=== PATIENT | female | born 1960 | race Two or more races ===

== ENCOUNTER 2018-05-18 12:23 | Emergency (ER) | payer OTHER ==
[2018-05-18 12:30] VITALS: BMI 27.6
[2018-05-18 16:35] LABS: BASO % 0.4 % (0-2.0); EOS % 1.3 % (0-4.5); HEMATOCRIT 38.4 % (32.4-45.2); HEMOGLOBIN 12.7 GM/dL (10.7-15.3); LYMPH % 23.2 % (8-40); MCH 28.3 pg (25.7-33.7); MCHC 32.9 g/dl (32.0-36.0); MEAN CELL VOLUME 86.1 fl (80-96); MEAN PLT VOLUME 9.6 fl (7.5-11.1); MONO % 6.4 % (3.8-10.2); NEUT % 68.7 % (42.8-82.8); PLATELET COUNT 268 K/MM3 (134-434); RBC 4.46 M/mm3 (3.60-5.2); WHITE BLOOD COUNT 6.3 K/mm3 (4.0-10.0)
--- NOTE | 2018-05-18 16:52 | PDOC ---
History of Present Illness - General Chief Complaint: Wound Stated Complaint: REVISIT, PAIN Time Seen by Provider: 05/18/18 14:58 History Source: Patient Exam Limitations: No Limitations - History of Present Illness Initial Comments: 05/18/18 16:52 58-year-old female presents to ED for worsening pain to the lateral aspect of left foot. Patient states was here a few days prior but states pain has increased and now with discoloration to the side of her foot. Patient denies history of gout, injury to the foot or poor fitting shoes. Patient is a diabetic and denies fever/chills. Patient denies sensory changes to the foot. Timing/Duration: getting worse Severity: moderate Associated Symptoms: reports: denies symptoms Past History - Past Medical History Allergies/Adverse Reactions: Allergies Allergy/AdvReac Type Severity Reaction Status Date / Time No Known Allergies Allergy Verified 05/18/18 12:30 Home Medications: Ambulatory Orders Atorvastatin Ca [Lipitor -] 10 mg PO HS 10/24/13 Enalapril Maleate 10 mg PO DAILY 06/04/14 Insulin Glulisine [Apidra Solostar] 5 unit SQ BID 06/04/14 Atorvastatin Ca [Lipitor] 40 mg PO HS 05/14/18 Insulin Glargine,Hum.rec.anlog [Basaglar Kwikpen U-100] 35 unit SQ HS 05/14/18 Liraglutide [Victoza -] 1.2 mg SQ DAILY@0700 05/14/18 Tramadol HCl 50 mg PO BID #6 tablet MDD 2 05/14/18 Amlodipine Besylate [Norvasc -] 10 mg PO DAILY 05/18/18 Clindamycin [Cleocin -] 300 mg PO TID #21 capsule 05/18/18 Gabapentin 400 mg PO DAILY 05/18/18 Glipizide [Glipizide ER] 2.5 mg PO BID 05/18/18 Metformin HCl [Glucophage] 100 mg PO BID 05/18/18 Oxybutynin Chloride [Oxybutynin Chloride ER] 10 mg PO DAILY 05/18/18 Oxycodone HCl/Acetaminophen [Percocet 5-325 mg Tablet] 1 - 2 tab PO Q6H PRN #12 tab MDD 4 05/18/18 COPD: No Diabetes: Yes HTN: Yes Hypercholesterolemia: Yes Psychiatric Problems: Yes (DEPRESSION) - Surgical History Abdominal Surgery: Yes (TUBAL LIGATION) - Immunization History Immunization Up to Date: No - Suicide/Smoking/Psychosocial Hx Smoking Status: No Smoking History: Never smoked Have you smoked in the past 12 months: No Number of Cigarettes Smoked Daily: 0 Information on smoking cessation initiated: No Hx Alcohol Use: No Drug/Substance Use Hx: No Substance Use Type: None Patient Lives Alone: No Lives with/in: spouse/SO Review of Systems - Review of Systems Able to Perform ROS?: No Constitutional: No: Symptoms Reported HEENTM: No: Symptoms Reported Respiratory: No: Symptoms reported Cardiac (ROS): No: Symptoms Reported ABD/GI: No: Symptoms Reported : No: Symptoms Reported Musculoskeletal: Yes: Joint Pain (left foot), Joint Swelling Integumentary: Yes: Bruising Neurological: No: Symptoms reported Endocrine: No: Symptoms Reported *Physical Exam - Vital Signs Last Vital Signs Temp Pulse Resp BP Pulse Ox 98.8 F 82 17 139/53 100 05/18/18 12:28 05/18/18 12:28 05/18/18 12:28 05/18/18 12:28 05/18/18 12:28 - Physical Exam General Appearance: Yes: Nourished, Appropriately Dressed. No: Apparent Distress Vascular Pulses: Doralis-Pedis (L): 2+ Extremity: positive: Pedal Edema (2+ pitting over lateral aspect of left malleolus extending to the lateral aspect of calcaneus. Patient also noted with purpleish discoloration to the distal aspect of left malleolus on the lateral side near the sole. No increased warmth or open lesions noted ) Integumentary: positive: Diaphoresis, Swelling Neurologic: positive: Motor Strength 5/5 ED Treatment Course - LABORATORY CBC & Chemistry Diagram: 05/18/18 16:30 05/18/18 16:30 - ADDITIONAL ORDERS Additional order review: 05/18/18 16:30 RBC 4.46 MCV 86.1 MCHC 32.9 RDW 14.0 MPV 9.6 Neutrophils % 68.7 Lymphocytes % 23.2 Monocytes % 6.4 Eosinophils % 1.3 Basophils % 0.4 - RADIOLOGY Radiology Studies Ordered: Category Date Time Status LOWER EXTREMITY CT W/O CONTR [CT] Stat CT Scan 05/18/18 15:36 Ordered DUPLEX VASCUL US-1 LEG [US] Stat Ultrasound 05/18/18 16:38 Ordered - Medications Given in the ED: ED Medications Discontinued Medications Generic Name Dose Route Start Last Admin Trade Name Vinay PRN Reason Stop Dose Admin Oxycodone/Acetaminophen 1 combo 05/18/18 15:35 05/18/18 16:31 Percocet 5/325 - PO 05/18/18 15:36 1 combo ONCE ONE Administration Medical Decision Making - Medical Decision Making 05/18/18 16:05 Patient with worsening pain to the left foot continual swelling and now with ecchymosis. Patient concerning for early diabetic foot ulcer/gout/soft tissue injury. Patient ordered for labs, uric acid, Percocet and CT of the lower extremity along with ultrasound of the lower stomach to rule out phlebitis and DVT. 05/18/18 16:57 Laboratory Tests 05/18/18 16:30 WBC 6.3 Hgb 12.7 Hct 38.4 Neutrophils % 68.7 05/18/18 18:00 Laboratory Tests 05/18/18 16:30 Sodium 137 Potassium 4.3 Chloride 99 Carbon Dioxide 32 BUN 11 Creatinine 0.7 Creat Clearance w eGFR > 60 Random Glucose 271 H Uric Acid 2.8 Calcium 9.2 Total Bilirubin 0.3 AST 9 L ALT 20 Alkaline Phosphatase 112 Total Protein 7.[address] - no abscess, osteomyelitis or fracture. Duplex study - for dvt Th ept states is feeling much better. Will discharge home with antibiotic for early/possible diabetic foot ulcer. Percocet for pain. 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 *DC/Admit/Observation/Transfer Diagnosis at time of Disposition: Diabetes, Osteophyte - Discharge Dispostion Disposition: HOME Condition at time of disposition: Good - Referrals Referrals: Bernard Dias [Primary Care Provider] - - Patient Instructions Printed Discharge Instructions: How to Take Care of Your Feet If You Have Diabetes Additional Instructions: Please take antibiotics tonight. Take Percocet as needed for PAIN. Follow up with stem processing machine operator next week. Return to ED if redness, swelling or fever occurs - Post Discharge Activity
--- NOTE | 2018-05-18 16:53 | PDOC ---
*Physical Exam - Vital Signs Last Vital Signs Temp Pulse Resp BP Pulse Ox 98.8 F 82 17 139/53 100 05/18/18 12:28 05/18/18 12:28 05/18/18 12:28 05/18/18 12:28 05/18/18 12:28 - Physical Exam General Appearance: Yes: Nourished HEENT: positive: JHONATHAN Neck: positive: Trachea midline Respiratory/Chest: positive: Lungs Clear, Normal Breath Sounds Cardiovascular: positive: Regular Rhythm, Regular Rate, S1, S2 Gastrointestinal/Abdominal: positive: Normal Bowel Sounds, Flat, Soft. negative : Tender Extremity: positive: Normal Capillary Refill, Normal Range of Motion, Tender, Pedal Edema, Swelling (left lateral foot with posterior heel, lateralheel ttp, erythema and swelling. ) Integumentary: positive: Swelling (foot swellikng erythema) Neurologic: positive: Fully Oriented, Alert, Normal Mood/Affect ED Treatment Course - LABORATORY CBC & Chemistry Diagram: 05/18/18 16:30 05/18/18 16:30 - ADDITIONAL ORDERS Additional order review: 05/18/18 16:30 RBC 4.46 MCV 86.1 MCHC 32.9 RDW 14.0 MPV 9.6 Neutrophils % 68.7 Lymphocytes % 23.2 Monocytes % 6.4 Eosinophils % 1.3 Basophils % 0.4 - Medications Given in the ED: ED Medications Discontinued Medications Generic Name Dose Route Start Last Admin Trade Name Freq PRN Reason Stop Dose Admin Oxycodone/Acetaminophen 1 combo 05/18/18 15:35 05/18/18 16:31 Percocet 5/325 - PO 05/18/18 15:36 1 combo ONCE ONE Administration Medical Decision Making - Medical Decision Making 05/18/18 16:50 58 yo F h/o DM here with c/o left lateral foot swelling and pain. no h/o trauma. was seen for same day ago. had xray foot negative. no h/o pe or dvt. no f/c pain moderate. mild swelling and redness. lateral focal ttp and redness latera heel and foot. differential cellutlisi, dvt and or phlebitis. plan us ext labs likely tx with abx. if negative consider dc home with abx and podiatry followup. pt seen and examined, in conjunction with garrick Vega. agree with plan and assessment. *DC/Admit/Observation/Transfer Diagnosis at time of Disposition: Diabetes, Osteophyte, Cellulitis - Discharge Dispostion Disposition: HOME Condition at time of disposition: Good - Prescriptions Prescriptions: Clindamycin [Cleocin -] 300 mg PO Q6HPO #28 capsule Oxycodone HCl/Acetaminophen [Percocet 5-325 mg Tablet] 1 - 2 tab PO Q6H PRN #12 tab MDD 4 tabs PRN Reason: Severe Pain - Referrals Referrals: Bernard Dias [Primary Care Provider] - - Patient Instructions Printed Discharge Instructions: How to Take Care of Your Feet If You Have Diabetes Additional Instructions: Please take antibiotics tonight. Take Percocet as needed for PAIN. Follow up with trainman next week. Return to ED if redness, swelling or fever occurs Print Language: NIUEAN - Post Discharge Activity
[2018-05-18 17:08] LABS: ALBUMIN 3.8 g/dl (3.4-5.0); ALK PHOS 112 U/L (45-117); ANION GAP 6 (8-16); BILIRUBIN,TOTAL 0.3 mg/dL (0.2-1.0); BLOOD UREA NITROGEN 11 mg/dL (7-18); CALCIUM 9.2 mg/dL (8.5-10.1); CHLORIDE 99 mmol/L (98-107); CO2 32 mmol/L (21-32); CREATININE 0.7 mg/dL (0.55-1.02); GLUCOSE,RANDOM 271 mg/dL (74-106); POTASSIUM 4.3 mmol/L (3.5-5.1); SGOT/AST 9 U/L (15-37); SGPT/ALT 20 U/L (12-78); SODIUM 137 mmol/L (136-145); TOT PROT 7.4 g/dl (6.4-8.2); URIC ACID 2.8 mg/dL (2.6-7.2)
[2018-05-18 18:31] VITALS: BP 119/61; PULSE 63; TEMP 97.8
== END 2018-05-18 18:44 | disposition home or self-care (01) ==
LOC: JER 12:23
DX: L03.116 Cellulitis of left lower limb (principal); M25.775 Osteophyte, left foot; E11.9 Type 2 diabetes mellitus without complications; Z79.4 Long term (current) use of insulin; Z79.84 Long term (current) use of oral hypoglycemic drugs; F32.9 Major depressive disorder, single episode, unspecified
CPT/HCPCS: 36415; 73700-TC-RT; 80053; 84550; 85025; 93971-TC; 99282-25

== ENCOUNTER 2018-10-01 08:55 | Emergency (ER) | payer OTHER ==
[2018-10-01 09:01] VITALS: BP 139/65; PULSE 77; TEMP 98.1; BMI 28.3
--- NOTE | 2018-10-01 10:05 | PDOC ---
History of Present Illness - General Chief Complaint: Abscess Boil Stated Complaint: ABSCESS ON LEG Time Seen by Provider: 10/01/18 09:12 History Source: Patient Exam Limitations: No Limitations - History of Present Illness Initial Comments: 10/01/18 19:48 Patient is a 58-year-old female who insulin-dependent diabetes who presents to the emergency department with an abscess to her right lower leg as well as a pimple to her right axilla. Patient states that these started approximately 4 days ago. She tried see her primary care doctor however she was not able to get antibiotics. She states that she gets abscesses often because of her diabetes. Patient states that her sugars have been elevated despite using her insulin as directed because of the infection. Denies fevers, chills, nausea, vomiting, lightheadedness and dizziness. Past History - Travel Traveled outside of the country in the last 30 days: No Close contact w/someone who was outside of country & ill: No - Past Medical History Allergies/Adverse Reactions: Allergies Allergy/AdvReac Type Severity Reaction Status Date / Time No Known Allergies Allergy Verified 10/01/18 08:56 Home Medications: Ambulatory Orders Insulin Glulisine [Apidra Solostar] 5 unit SQ BID 06/04/14 Atorvastatin Ca [Lipitor] 40 mg PO HS 05/14/18 Insulin Glargine,Hum.rec.anlog [Basaglar Kwikpen U-100] 35 unit SQ HS 05/14/18 Liraglutide [Victoza -] 1.2 mg SQ DAILY@0700 05/14/18 Amlodipine Besylate [Norvasc -] 10 mg PO DAILY 05/18/18 Gabapentin 400 mg PO DAILY 05/18/18 Glipizide [Glipizide ER] 2.5 mg PO BID 05/18/18 Metformin HCl [Glucophage] 100 mg PO BID 05/18/18 Oxybutynin Chloride [Oxybutynin Chloride ER] 10 mg PO DAILY 05/18/18 Aspirin [ASA -] 1 tab PO DAILY 07/19/18 Cephalexin Monohydrate [Keflex -] 500 mg PO BID #14 capsule 10/01/18 Sulfamethoxazole/Trimethoprim [Bactrim Ds -] 1 tab PO BID #14 tablet 10/01/18 COPD: No Diabetes: Yes HTN: Yes Hypercholesterolemia: Yes Psychiatric Problems: Yes (DEPRESSION) - Surgical History Abdominal Surgery: Yes (TUBAL LIGATION) - Immunization History Immunization Up to Date: No - Suicide/Smoking/Psychosocial Hx Smoking Status: No Smoking History: Never smoked Have you smoked in the past 12 months: No Number of Cigarettes Smoked Daily: 0 Hx Alcohol Use: No Drug/Substance Use Hx: No Substance Use Type: None Review of Systems - Review of Systems Able to Perform ROS?: Yes Comments:: 10/01/18 12:34 CONSTITUTIONAL: Absent: fever, chills, diaphoresis, generalized weakness, malaise, loss of appetite HEENT: Absent: rhinorrhea, nasal congestion, throat pain, throat swelling, difficulty swallowing, mouth swelling, ear pain, eye pain, visual Changes CARDIOVASCULAR: Absent: chest pain, loss of consciousness, palpitations, irregular heart rate, peripheral edema RESPIRATORY: Absent: cough, shortness of breath, dyspnea with exertion, orthopnea, wheezing, stridor, hemoptysis GASTROINTESTINAL: Absent: abdominal pain, abdominal distension, nausea, vomiting, diarrhea, constipation, melena, hematochezia GENITOURINARY: Absent: dysuria, frequency, urgency, hesitancy, hematuria, flank pain, genital pain MUSCULOSKELETAL: Absent: myalgia, arthralgia, joint swelling SKIN: Present: abcess to R lower leg, pimple to r axilla. Absent: rash, itching, pallor HEMATOLOGIC/IMMUNOLOGIC: Absent: easy bleeding, easy bruising, lymphadenopathy, frequent infections ENDOCRINE: Absent: unexplained weight gain, unexplained weight loss, heat intolerance, cold intolerance NEUROLOGIC: Absent: headache, focal weakness or paresthesias, dizziness, unsteady gait, seizure, mental status changes, bladder or bowel incontinence PSYCHIATRIC: Absent: anxiety, depression, suicidal or homicidal ideation, hallucinations. *Physical Exam - Vital Signs Last Vital Signs Temp Pulse Resp BP Pulse Ox 98.1 F 77 18 139/65 100 10/01/18 08:56 10/01/18 08:56 10/01/18 08:56 10/01/18 08:56 10/01/18 08:56 - Physical Exam Comments: 10/01/18 19:44 GENERAL: Well developed, well nourished. Awake and alert. No acute distress. HEENT: Normocephalic, atraumatic. PERRLA, EOMI. No conjunctival pallor. Sclera are non- icteric. Moist mucous membranes. Oropharynx is clear. NECK: Supple. Full ROM. No JVD. Carotid pulses 2+ and symmetric, without bruits. No thyromegaly. No lymphadenopathy. CARDIOVASCULAR: Regular rate and rhythm. No murmurs, rubs, or gallops. Distal pulses are 2+ and symmetric. PULMONARY: No evidence of respiratory distress. Lungs clear to auscultation bilaterally. No wheezing, rales or rhonchi. ABDOMINAL: Soft. Non-tender. Non-distended. No rebound or guarding. No organomegaly. Normoactive bowel sounds. MUSCULOSKELETAL Normal range of motion at all joints. No bony deformities or tenderness. No CVA tenderness. EXTREMITIES: No cyanosis. No clubbing. No edema. No calf tenderness. SKIN: Warm and dry. Normal capillary refill. No rashes. No jaundice. NEUROLOGICAL: Alert, awake, appropriate. Cranial nerves 2-12 intact. No deficits to light touch and temperature in face, upper extremities and lower extremities. No motor deficits in the in face, upper extremities and lower extremities. Normoreflexic in the upper and lower extremities. Normal speech. Toes are down- going bilaterally. Gait is normal without ataxia. PSYCHIATRIC: Cooperative. Good eye contact. Appropriate mood and affect. Moderate Sedation - Procedure Monitoring Vital Signs: Procedure Monitoring Vital Signs Temperature 98.1 F 10/01/18 08:56 Pulse Rate 77 10/01/18 08:56 Respiratory Rate 18 10/01/18 08:56 Blood Pressure 139/65 10/01/18 08:56 O2 Sat by Pulse Oximetry (%) 100 10/01/18 08:56 Procedures - Incision and Drainage I&D Site: Right: Leg (lower) Betadine cleansed: Yes Anesthesia: 1% Lidocaine Volume(ml): 6 Blade Size: 11 Attempts: 1 (minimal purlent drainage after exploration of the abscess) Iodinated Packin/ in Plain Packing: No Complications: none Dressing: Yes ED Treatment Course - ADDITIONAL ORDERS Additional order review: Laboratory Results 10/01/18 09:43 POC Glucometer [id number] 10/01/18 09:43 POC Glucometer [id number] Medical Decision Making - Medical Decision Making 10/01/18 12:45 Patient is a 58-year-old insulin-dependent diabetic who presents emergency department for an abscess to her lower leg. -On exam patient with head to the abscess. Abscess is located on the proximal right lateral lower extremity, just below the kneecap. Patient able to fully flex and extend right knee. No warmth or swelling over the joint. -Area of fluctuance is about 3 cm round. -Abscess was I&D in the emergency department. Minimal purulent drainage after exploration of the abscess. Wound culture collected. -Patient started on Bactrim and Keflex. -Patient with a pimple in her right armpit. There is no fluctuance to drain at this time. Patient advised warm water soaks. -Sugar was 347. Patient given 6 units of NovoLog in the ER. -Patient given strict instructions to return to the ER in 2 days for further evaluation. -Strict return precautions given. -I discussed the physical exam findings, ancillary test results and final diagnoses with the patient. I answered all of the patient's questions. The patient was satisfied with the care received and felt comfortable with the discharge plan and treatment plan. The Patient agrees to follow up with the primary care physician/specialist within 24-72 hours. Return precautions were given. *DC/Admit/Observation/Transfer Diagnosis at time of Disposition: Abscess Cellulitis Qualifiers: Site of cellulitis: extremity Site of cellulitis of extremity: lower extremity Laterality: right Qualified Code(s): L03.115 - Cellulitis of right lower limb - Discharge Dispostion Disposition: HOME Condition at time of disposition: Stable Decision to Admit order: No - Prescriptions Prescriptions: Cephalexin Monohydrate [Keflex -] 500 mg PO BID #14 capsule Sulfamethoxazole/Trimethoprim [Bactrim Ds -] 1 tab PO BID #14 tablet - Referrals - Patient Instructions Printed Discharge Instructions: DI for Cellulitis -- Adult, DI for Incision and Drainage of a Skin Abscess Additional Instructions: You have cellulitis. This is a skin infection. You had the abscess drained on your leg today Please take the Bactrim and Keflex twice a day for one week. Please take all the antibiotics even if you feel better. You may use warm water soaks to the armpit. Please do this approximately 4-5 times a day. Do NOT soak the leg. Please avoid shaving the skin around the area of redness. You may take Tylenol as needed for pain. 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 Tienes celulitis Esta es lynda infeccin de la piel. Usted tuvo el absceso drenado en willis pierna hoy Por favor, tome Bactrim y Keflex dos veces al da ellen lynda semana. Por favor , tome todos los antibiticos aunque se sienta mejor. Usted puede usar agua tibia empapa a la axila. Por favor david esto aproximadamente 4-5 veces al da. NO remoje la pierna. Evite rasurar la piel alrededor del tash de enrojecimiento. Puede kwaku Tylenol segn sea necesario para el dolor. Siga las instrucciones del fabricante. Debe regresar al servicio de urgencias en dos santizo para lynda revisin y reevaluacin Regrese a la olga de emergencias si tiene empeoramiento de enrojecimiento, fiebre, vmitos, si el sitio crece, aumenta el dolor o tiene algn cambio en gema sntomas. - Post Discharge Activity
[2018-10-01] MEDS ORDERED: INSULIN REGULAR HUMAN 100 UNITS/ML *VIAL SQ ONE (10:37)
[2018-10-01] MEDS ORDERED: INSULIN REGULAR HUMAN 100 UNITS/ML *VIAL ONE (10:45)
[2018-10-01] MEDS ORDERED: Insulin (LOG) Aspart 100 UNITS/ML VIAL SQ ONE (10:52)
[2018-10-01] MEDS ORDERED: INSULIN (NOVOLOG) ASPART 100 UNITS/ML 10ML VIAL ONE (10:57)
== END 2018-10-01 11:15 | disposition home or self-care (01) ==
LOC: JERFT 08:55
PROC: 0J9P0ZZ Drainage of Left Lower Leg Subcutaneous Tissue and Fascia, Open Approach (ICD-10-PCS; principal; 2018-10-01)
PROC: 3E013VG Introduction of Insulin into Subcutaneous Tissue, Percutaneous Approach (ICD-10-PCS; 2018-10-01)
DX: L03.115 Cellulitis of right lower limb (principal); R23.8 Other skin changes; E11.65 Type 2 diabetes mellitus with hyperglycemia; Z79.4 Long term (current) use of insulin; Z79.84 Long term (current) use of oral hypoglycemic drugs; E78.00 Pure hypercholesterolemia, unspecified; I10 Essential (primary) hypertension; F32.9 Major depressive disorder, single episode, unspecified
CPT/HCPCS: 10060; 82962; 87070; 87186; 87205; 96372; 99281-25

== ENCOUNTER 2018-10-03 10:56 | Inpatient (IN) | payer OTHER ==
--- NOTE | 2018-10-03 12:01 | PDOC ---
History of Present Illness - General Chief Complaint: Revisit,Wound Recheck Stated Complaint: REVISIT, ABSCESS BOIL Time Seen by Provider: 10/03/18 11:13 History Source: Patient Exam Limitations: No Limitations - History of Present Illness Initial Comments: 10/03/18 15:47 Patient is a 58-year-old female with past medical history of insulin-dependent diabetes, who presents to the emergency department today with worsening cellulitis to her right lower leg. Patient was seen 2 days ago by myself in the emergency department and had an I&D to an abscess of her right lower leg. She is placed on Bactrim and Keflex. Patient states she's been taking the medication however she still has swelling and erythema to the site. She states that her sugars have still been high in the high 200s, low 300s. Denies fevers, chills, nausea, vomiting, difficulty walking, and tingling HLD, weakness to the extremity. Past History - Travel Traveled outside of the country in the last 30 days: No Close contact w/someone who was outside of country & ill: No - Past Medical History Allergies/Adverse Reactions: Allergies Allergy/AdvReac Type Severity Reaction Status Date / Time No Known Allergies Allergy Verified 10/03/18 11:02 Home Medications: Ambulatory Orders Insulin Glulisine [Apidra Solostar] 5 unit SQ BID 06/04/14 Atorvastatin Ca [Lipitor] 40 mg PO HS 05/14/18 Insulin Glargine,Hum.rec.anlog [Basaglar Kwikpen U-100] 35 unit SQ HS 05/14/18 Liraglutide [Victoza -] 1.2 mg SQ DAILY@0700 05/14/18 Amlodipine Besylate [Norvasc -] 10 mg PO DAILY 05/18/18 Gabapentin 400 mg PO DAILY 05/18/18 Glipizide [Glipizide ER] 2.5 mg PO BID 05/18/18 Metformin HCl [Glucophage] 100 mg PO BID 05/18/18 Oxybutynin Chloride [Oxybutynin Chloride ER] 10 mg PO DAILY 05/18/18 Aspirin [ASA -] 1 tab PO DAILY 07/19/18 Cephalexin Monohydrate [Keflex -] 500 mg PO BID #14 capsule 10/01/18 Sulfamethoxazole/Trimethoprim [Bactrim Ds -] 1 tab PO BID #14 tablet 10/01/18 COPD: No Diabetes: Yes HTN: Yes Hypercholesterolemia: Yes Psychiatric Problems: Yes (DEPRESSION) - Surgical History Abdominal Surgery: Yes (TUBAL LIGATION) - Immunization History Immunization Up to Date: No - Suicide/Smoking/Psychosocial Hx Smoking Status: No Smoking History: Never smoked Have you smoked in the past 12 months: No Number of Cigarettes Smoked Daily: 0 Hx Alcohol Use: No Drug/Substance Use Hx: No Substance Use Type: None Review of Systems - Review of Systems Able to Perform ROS?: Yes Comments:: 10/03/18 15:28 CONSTITUTIONAL: Absent: fever, chills, diaphoresis, generalized weakness, malaise, loss of appetite HEENT: Absent: rhinorrhea, nasal congestion, throat pain, throat swelling, difficulty swallowing, mouth swelling, ear pain, eye pain, visual Changes CARDIOVASCULAR: Absent: chest pain, loss of consciousness, palpitations, irregular heart rate, peripheral edema RESPIRATORY: Absent: cough, shortness of breath, dyspnea with exertion, orthopnea, wheezing, stridor, hemoptysis GASTROINTESTINAL: Absent: abdominal pain, abdominal distension, nausea, vomiting, diarrhea, constipation, melena, hematochezia GENITOURINARY: Absent: dysuria, frequency, urgency, hesitancy, hematuria, flank pain, genital pain MUSCULOSKELETAL: Absent: myalgia, arthralgia, joint swelling SKIN: Absent: rash, itching, pallor HEMATOLOGIC/IMMUNOLOGIC: Absent: easy bleeding, easy bruising, lymphadenopathy, frequent infections ENDOCRINE: Absent: unexplained weight gain, unexplained weight loss, heat intolerance, cold intolerance NEUROLOGIC: Absent: headache, focal weakness or paresthesias, dizziness, unsteady gait, seizure, mental status changes, bladder or bowel incontinence PSYCHIATRIC: Absent: anxiety, depression, suicidal or homicidal ideation, hallucinations. Is the patient limited Malian proficient: No *Physical Exam - Vital Signs Last Vital Signs Temp Pulse Resp BP Pulse Ox 97.8 F 76 18 150/75 10/03/18 11:03 10/03/18 11:03 10/03/18 11:03 10/03/18 11:03 - Physical Exam Comments: 10/03/18 15:28 GENERAL: Well developed, well nourished. Awake and alert. No acute distress. HEENT: Normocephalic, atraumatic. PERRLA, EOMI. No conjunctival pallor. Sclera are non- icteric. Moist mucous membranes. Oropharynx is clear. NECK: Supple. Full ROM. No JVD. Carotid pulses 2+ and symmetric, without bruits. No thyromegaly. No lymphadenopathy. CARDIOVASCULAR: Regular rate and rhythm. No murmurs, rubs, or gallops. Distal pulses are 2+ and symmetric. PULMONARY: No evidence of respiratory distress. Lungs clear to auscultation bilaterally. No wheezing, rales or rhonchi. ABDOMINAL: Soft. Non-tender. Non-distended. No rebound or guarding. No organomegaly. Normoactive bowel sounds. MUSCULOSKELETAL Normal range of motion at all joints. No bony deformities or tenderness. No CVA tenderness. EXTREMITIES: No cyanosis. No clubbing. No edema. No calf tenderness. SKIN: Warm and dry. Normal capillary refill. No rashes. No jaundice. NEUROLOGICAL: Alert, awake, appropriate. Cranial nerves 2-12 intact. No deficits to light touch and temperature in face, upper extremities and lower extremities. No motor deficits in the in face, upper extremities and lower extremities. Normoreflexic in the upper and lower extremities. Normal speech. Toes are down- going bilaterally. Gait is normal without ataxia. PSYCHIATRIC: Cooperative. Good eye contact. Appropriate mood and affect. Moderate Sedation - Procedure Monitoring Vital Signs: Procedure Monitoring Vital Signs Temperature 97.8 F 10/03/18 11:03 Pulse Rate 76 10/03/18 11:03 Respiratory Rate 18 10/03/18 11:03 Blood Pressure 150/75 10/03/18 11:03 O2 Sat by Pulse Oximetry (%) ED Treatment Course - LABORATORY CBC & Chemistry Diagram: 10/03/18 12:06 10/03/18 12:06 *DC/Admit/Observation/Transfer Diagnosis at time of Disposition: Cellulitis Qualifiers: Site of cellulitis: extremity Site of cellulitis of extremity: lower extremity Laterality: right Qualified Code(s): L03.115 - Cellulitis of right lower limb - Discharge Dispostion Condition at time of disposition: Stable Decision to Admit order: Yes - Referrals - Patient Instructions - Post Discharge Activity
[2018-10-03] MEDS ORDERED: VANCOMYCIN 1,000 MG in DEXTROSE 5%-WATER - 250 ML IVPB ONE (12:05)
[2018-10-03] MEDS ORDERED: PIPERACILLIN/TAZOB 3.375 GM 3.375 GM in DEXTROSE 5%-WATER - 50 ML IVPB ONE (12:07)
[2018-10-03] MEDS ORDERED: VANCOMYCIN 1 GRAM (PRE-DOCKED) 1,000 MG/250 ML BAG IVPB ONE (12:24)
[2018-10-03] MEDS ORDERED: PIPERACILLIN/TAZOB 3.375 GM 3.375 GM/50 ML BAG IVPB ONE (12:25)
[2018-10-03 12:43] LABS: BASO % 0.6 % (0-2.0); EOS % 1.5 % (0-4.5); HEMATOCRIT 40.6 % (32.4-45.2); HEMOGLOBIN 12.9 GM/dL (10.7-15.3); MCH 27.6 pg (25.7-33.7); MCHC 31.8 g/dl (32.0-36.0); MEAN CELL VOLUME 86.6 fl (80-96); MEAN PLT VOLUME 10.7 fl (7.5-11.1); MONO % 5.8 % (3.8-10.2); NEUT % 66.1 % (42.8-82.8); PLATELET COUNT 231 K/MM3 (134-434); RBC 4.69 M/mm3 (3.60-5.2); RDW 13.6 % (11.6-15.6); WHITE BLOOD COUNT 5.7 K/mm3 (4.0-10.0)
[2018-10-03 12:58] LABS: URINE APPEARANCE CLEAR; URINE BILIRUBIN NEGATIVE (<2.0 mg/dL); URINE COLOR STRAW; URINE GLUCOSE (UA) 3+ (NEGATIVE); URINE KETONE NEGATIVE (NEGATIVE); URINE LEUK ESTERASE NEGATIVE (NEGATIVE); URINE NITRITE NEGATIVE (NEGATIVE); URINE PROTEIN NEGATIVE (NEGATIVE); URINE UROBILINOGEN NEGATIVE mg/dL (0.2-1.0)
[2018-10-03 13:06] LABS: ALBUMIN 3.8 g/dl (3.4-5.0); ALK PHOS 112 U/L (45-117); ANION GAP 7 MMOL/L (8-16); BILIRUBIN,TOTAL 0.3 mg/dL (0.2-1); BLOOD UREA NITROGEN 17 mg/dL (7-18); CALCIUM 9.4 mg/dL (8.5-10.1); CHLORIDE 98 mmol/L (98-107); CO2 29 mmol/L (21-32); CREATININE 0.8 mg/dL (0.55-1.3); GLUCOSE,RANDOM 282 mg/dL (74-106); POTASSIUM 4.8 mmol/L (3.5-5.1); SGOT/AST 12 U/L (15-37); SGPT/ALT 21 U/L (13-61); SODIUM 134 mmol/L (136-145); TOT PROT 7.6 g/dl (6.4-8.2)
--- NOTE | 2018-10-03 15:52 | EKG ---
Test Reason : Blood Pressure : / mmHG Vent. Rate : 064 BPM Atrial Rate : 064 BPM P-R Int : 114 ms QRS Dur : 088 ms QT Int : 414 ms P-R-T Axes : 051 013 013 degrees QTc Int : 427 ms POOR DATA QUALITY, INTERPRETATION MAY BE ADVERSELY AFFECTED NORMAL SINUS RHYTHM NORMAL ECG WHEN COMPARED WITH ECG OF 24-OCT-2013 11:21, T WAVE AMPLITUDE HAS DECREASED IN ANTERIOR LEADS Confirmed by WINDY RENO, MARGARET ([id number]) on 10/03/2018 3:52:01 PM Referred By: Confirmed By:MARGARET TEMPLE MD
--- NOTE | 2018-10-03 16:49 | PN ---
Teaching Attending Note Name of Resident: Kole Ramos ATTENDING PHYSICIAN STATEMENT I saw and evaluated the patient. I reviewed the resident's note and discussed the case with the resident. I agree with the resident's findings and plan as documented. SUBJECTIVE: Rt knee pain and fever OBJECTIVE: Middle aged woman comfortable Vital Signs Period Temp Pulse Resp BP Sys/Kirk Pulse Ox Last 24 Hr 97.8 F-98.7 F 70-76 18-18 145-150/74-75 98 HEENT: Mm moist, no anemia, PERRLA EOMI NECK: No JVD No Bruit CHEST: CTA B/L CVS; S1S2 R ABD: No distention , non tender Bs + EXT: Rt knee Lateral aspect small pustule s/p I and D 2 days ago surrounding indurated area no Joint swelling or effusion BARREL BRANDER: AOX3 non focal LABS: CBC, BMP 10/03/18 12:06 10/03/18 12:06 Pus Culture; 10/01 MRSA: sensitive to Clinda, Vanco, Bactrim, Lenzolid ASSESSMENT AND PLAN:58 years on history of uncontrolled T2DM, HTN present with worsening Rt LE abscess with cellulitis , patient failed PO Bactrin, Pus culture grew MRSA; Impression; Purulent Cellulitis with abscess formation failed PO abx ; IV Vancomycin, wound care hot fomentation, consider surgery/wound care if no improvement, pain control, contact isolation. Uncontrolled T2DM: Hold Po meds , Diabetic Diet, Levimir 35 units bed time and Humalog 10 units pre meal TID and correction dose insulin. Rest cont current management. DVt Prophylaxis.
--- NOTE | 2018-10-03 17:04 | HP ---
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 She was in ED 2 days ago for the same complaint. The wound was drained at that time and the patient was sent home on bactrim and keflex with strict return precautions. However, she returned today stating the wound was still painful, red, and was draining. Denies fever, chills, n/v/d. No other complaints. ER course was notable for: (1) la archer (2) (3) Recent Travel: denies PAST MEDICAL HISTORY: as above PAST SURGICAL HISTORY: Social History: Smoking: denies Alcohol: denies Drugs: denies Family History: denies Allergies No Known Allergies Allergy (Verified 10/03/18 11:02) HOME MEDICATIONS: Home Medications Medication Instructions Recorded Insulin Glulisine [Apidra Solostar] 5 unit SQ BID 06/04/14 Atorvastatin Ca [Lipitor] 40 mg PO HS 05/14/18 Insulin Glargine,Hum.rec.anlog 35 unit SQ HS 05/14/18 [Basaglar Kwikpen U-100] Liraglutide [Victoza -] 1.2 mg SQ DAILY@0700 05/14/18 Amlodipine Besylate [Norvasc -] 10 mg PO DAILY 05/18/18 Gabapentin 400 mg PO DAILY 05/18/18 Glipizide [Glipizide ER] 2.5 mg PO BID 05/18/18 Metformin HCl [Glucophage] 100 mg PO BID 05/18/18 Oxybutynin Chloride [Oxybutynin 10 mg PO DAILY 05/18/18 Chloride ER] Aspirin [ASA -] 1 tab PO DAILY 07/19/18 Cephalexin Monohydrate [Keflex -] 500 mg PO BID #14 capsule 10/01/18 Sulfamethoxazole/Trimethoprim 1 tab PO BID #14 tablet 10/01/18 [Bactrim Ds -] REVIEW OF SYSTEMS CONSTITUTIONAL: Absent: fever, chills, diaphoresis, generalized weakness, malaise, loss of appetite, weight change HEENT: Absent: rhinorrhea, nasal congestion, throat pain, throat swelling, difficulty swallowing, mouth swelling, ear pain, eye pain, visual changes CARDIOVASCULAR: Absent: chest pain, syncope, palpitations, irregular heart rate, lightheadedness , peripheral edema RESPIRATORY: Absent: cough, shortness of breath, dyspnea with exertion, orthopnea, wheezing, stridor, hemoptysis GASTROINTESTINAL: Absent: abdominal pain, abdominal distension, nausea, vomiting, diarrhea, constipation, melena, hematochezia GENITOURINARY: Absent: dysuria, frequency, urgency, hesitancy, hematuria, flank pain, genital pain MUSCULOSKELETAL: Absent: myalgia, arthralgia, joint swelling, back pain, neck pain SKIN: lesion on RLE Absent: rash, itching, pallor HEMATOLOGIC/IMMUNOLOGIC: Absent: easy bleeding, easy bruising, lymphadenopathy, frequent infections ENDOCRINE: Absent: unexplained weight gain, unexplained weight loss, heat intolerance, cold intolerance NEUROLOGIC: Absent: headache, focal weakness or paresthesias, dizziness, unsteady gait, seizure, mental status changes, bladder or bowel incontinence PSYCHIATRIC: Absent: anxiety, depression, suicidal or homicidal ideation, hallucinations. PHYSICAL EXAMINATION Vital Signs - 24 hr 10/03/18 11:03 Temperature 97.8 F Pulse Rate 76 Respiratory 18 Rate Blood Pressure 150/75 Gen: comfortable appearing HEENT: EOMI, NCAT Neck: supple, no jvd Cardio: rrr, normal s1s2, no mrg Pulm: cta b/l Abd: nondistended, soft, nontender Ext: RLE with draining 1-2cm abscess and 6cm surrounding erythema Laboratory Results - last 24 hr 10/03/18 10/03/18 10/03/18 12:06 12:06 12:35 WBC 5.7 RBC 4.69 Hgb 12.9 Hct 40.6 MCV 86.6 MCH 27.6 MCHC 31.8 L RDW 13.6 Plt Count 231 MPV 10.7 D Absolute Neuts (auto) 3.8 Neutrophils % 66.1 Lymphocytes % 26.0 Monocytes % 5.8 Eosinophils % 1.5 Basophils % 0.6 Nucleated RBC % 0 Sodium 134 L Potassium 4.8 Chloride 98 Carbon Dioxide 29 Anion Gap 7 L BUN 17 Creatinine 0.8 Creat Clearance w eGFR > 60 Random Glucose 282 H Calcium 9.4 Total Bilirubin 0.3 AST 12 L ALT 21 Alkaline Phosphatase 112 Total Protein 7.6 Albumin 3.8 Urine Color Straw Urine Appearance Clear Urine pH 6.0 Ur Specific Abell 1.008 L Urine Protein Negative Urine Glucose (UA) 3+ H D Urine Ketones Negative Urine Blood Negative Urine Nitrite Negative Urine Bilirubin Negative Urine Urobilinogen Negative Ur Leukocyte Esterase Negative ASSESSMENT/PLAN: Pt is a 58 y/o F with PMH uncontrolled IDDM and mult abscesses who presented to ED with complaint of persistant abscess despite I&D and 2 days PO Abx. Pt placed on Obs for cellulitis with purulent abscess failing out pt therapy. #Cellulitis -failed outpt Bactrim and Keflex -Cx pos for MRSA -Clinda, Unasyn -ID consult -Wound Cx -BCx, UCx drawn by ED -no fever, no leukocytosis at this time. monitor #DM -uncontrolled DM -A1C -BGM ACHS -c/w Levemir 35 HS -Novolog 10 pre-meal -ISS #HTN -c/w Norvasc #HLD -c/w Liptor #FEN -NS -mild hyponatremia -dm diet #PPx -Hep SubQ #Dispo -Obs Kole Ramos MD PGY-2 IM Visit type - Emergency Visit Emergency Visit: Yes ED Registration Date: 10/03/18 Care time: The patient presented to the Emergency Department on the above date and was hospitalized for further evaluation of their emergent condition. - New Patient This patient is new to me today: Yes Date on this admission: 10/03/18 - Critical Care Critical Care patient: No
[2018-10-03] MEDS ORDERED: INSULIN (NOVOLOG) ASPART 100 UNITS/ML 10ML VIAL SQ SCH (17:30)
[2018-10-03] MEDS ORDERED: SODIUM CHLORIDE 1,000 ML IV STA (17:39)
[2018-10-03] MEDS: AMPICILLIN NA/SULBACTAM NA 1.5 GM in SODIUM CHLORIDE 100 ML IVPB SCH ×2 (17:58→22:05)
[2018-10-03] MEDS ORDERED: INSULIN (NOVOLOG) ASPART 100 UNITS/ML 10ML VIAL ONE (18:19)
[2018-10-03] MEDS: INSULIN SLIDING SCALE (NOVOLOG) 1 VIAL SQ SCH ×2 (18:23→22:09)
[2018-10-03] MEDS ORDERED: PT OWN MED DRAWER 7, Y5N ONE (20:11)
[2018-10-03] MEDS: CLINDAMYCIN 600MG PREMIX IVPB 600 MG/50 ML BAG IVPB SCH (20:13)
[2018-10-03] MEDS: HEPARIN NA (PORCINE) 5,000 UNITS/ML 1ML VIAL SQ SCH (22:07)
[2018-10-03] MEDS: ATORVASTATIN CA 40 MG TABLET (FP) PO SCH (22:08)
[2018-10-03] MEDS: INSULIN (LEVEMIR) 100 UNITS/ML UNITS SQ SCH (22:08)
[2018-10-03 23:22] VITALS: BMI 28.6
[2018-10-04] MEDS ORDERED: PT OWN MED DRAWER 7, Y5N ONE ×2 (02:35→09:29)
[2018-10-04] MEDS: CLINDAMYCIN 600MG PREMIX IVPB 600 MG/50 ML BAG IVPB SCH ×2 (02:40→09:43)
[2018-10-04] MEDS: AMPICILLIN NA/SULBACTAM NA 1.5 GM in SODIUM CHLORIDE 100 ML IVPB SCH (03:37)
[2018-10-04] MEDS: HEPARIN NA (PORCINE) 5,000 UNITS/ML 1ML VIAL SQ SCH ×3 (05:46→21:23)
[2018-10-04] MEDS: INSULIN SLIDING SCALE (NOVOLOG) 1 VIAL SQ SCH ×4 (06:04→21:22)
[2018-10-04 08:11] LABS: BASO % 0.5 % (0-2.0); EOS % 0.4 % (0-4.5); HEMATOCRIT 38.3 % (32.4-45.2); HEMOGLOBIN 12.2 GM/dL (10.7-15.3); LYMPH % 19.3 % (8-40); MCH 27.6 pg (25.7-33.7); MCHC 31.9 g/dl (32.0-36.0); MEAN CELL VOLUME 86.5 fl (80-96); MEAN PLT VOLUME 9.8 fl (7.5-11.1); MONO % 5.3 % (3.8-10.2); NEUT % 74.5 % (42.8-82.8); PLATELET COUNT 214 K/MM3 (134-434); RBC 4.42 M/mm3 (3.60-5.2); RDW 13.4 % (11.6-15.6); WHITE BLOOD COUNT 5.8 K/mm3 (4.0-10.0)
[2018-10-04 08:31] LABS: ALBUMIN 3.3 g/dl (3.4-5.0); ALK PHOS 86 U/L (45-117); ANION GAP 7 MMOL/L (8-16); BILIRUBIN,TOTAL 0.3 mg/dL (0.2-1); BLOOD UREA NITROGEN 15 mg/dL (7-18); CALCIUM 8.8 mg/dL (8.5-10.1); CHLORIDE 104 mmol/L (98-107); CO2 30 mmol/L (21-32); CREATININE 0.6 mg/dL (0.55-1.3); GLUCOSE,RANDOM 117 mg/dL (74-106); POTASSIUM 4.9 mmol/L (3.5-5.1); SGOT/AST 12 U/L (15-37); SGPT/ALT 19 U/L (13-61); SODIUM 141 mmol/L (136-145); TOT PROT 6.5 g/dl (6.4-8.2)
[2018-10-04] MEDS ORDERED: AMPICILLIN NA/SULBACTAM NA 1.5 GM in SODIUM CHLORIDE 100 ML IVPB SCH (08:50)
[2018-10-04] MEDS ORDERED: AMPICILLIN NA/SULBACTAM NA 1.5 GM VIAL ONE (09:29)
[2018-10-04] MEDS ORDERED: SODIUM CHLORIDE 100 ML IVPB ONE (09:29)
[2018-10-04] MEDS: amLODIPine BESYLATE 10 MG TABLET (FP) PO SCH (09:43)
[2018-10-04] MEDS: ASPIRIN 81 MG CHEWABLE TABLETS PO SCH (09:43)
[2018-10-04] MEDS: SOLIFENACIN SUCCINATE 5 MG TAB (FP) PO SCH (09:43)
[2018-10-04] MEDS: GABAPENTIN 400 MG CAPSULE (FP) PO SCH (09:43)
[2018-10-04] MEDS ORDERED: PNEUMOC 13-VAL CONJ-DIP CRM/PF 0.5 ML DISP.SYRIN IM ONE (10:00)
[2018-10-04] MEDS ORDERED: MUPIROCIN 2% TOPICAL OINTMENT FOR DECOLONIZATION NS SCH (10:00)
[2018-10-04] MEDS ORDERED: PNEUMOCOCCAL 23 VACCINE 0.5 ML VIAL IM ONE (10:00)
--- NOTE | 2018-10-04 10:06 | PN ---
Progress Note, Physician Chief Complaint: Patient remained afebrile, Rt knee lesion improved significantly surrounding cellulitis has almost regressed. - Current Medication List Current Medications: Active Medications Amlodipine Besylate (Norvasc -) 10 mg PO DAILY [facility] Last Admin: 10/04/18 09:43 Dose: 10 mg Aspirin (Asa -) 81 mg PO DAILY [facility] Last Admin: 10/04/18 09:43 Dose: 81 mg Atorvastatin Calcium (Lipitor -) 40 mg PO HS [facility] Last Admin: 10/03/18 22:08 Dose: 40 mg Chlorhexidine Gluconate (Hibiclens For Decolonization -) 1 applic TP HS [facility] Gabapentin (Neurontin -) 400 mg PO DAILY [facility] Last Admin: 10/04/18 09:43 Dose: 400 mg Heparin Sodium (Porcine) (Heparin -) 5,000 unit SQ TID [facility] Last Admin: 10/04/18 05:46 Dose: 5,000 unit Clindamycin Phosphate (Cleocin 600 Mg Premix Ivpb -) 600 mg in 50 mls @ 100 mls /hr IVPB Q8H-IV [facility]; Protocol Last Admin: 10/04/18 09:43 Dose: 100 mls/hr Insulin Aspart (Novolog Vial Sliding Scale -) 1 vial SQ ACHS [facility]; Protocol Last Admin: 10/04/18 06:04 Dose: Not Given Insulin Detemir (Levemir Vial) 35 units SQ [facility] Last Admin: 10/03/18 22:08 Dose: 35 units Mupirocin (Bactroban Ointment (For Decolonization) -) 1 applic NS BID [facility] Stop: 10/09/18 09:59 Pneumococcal Polyvalent Vaccine (Pneumovax -) 0.5 ml IM .ONCE ONE Stop: 10/04/18 10:01 Solifenacin (Vesicare -) 5 mg PO DAILY [facility] Last Admin: 10/04/18 09:43 Dose: 5 mg - Objective Vital Signs: Vital Signs Temperature 97.7 F 10/04/18 05:00 Pulse Rate 64 10/04/18 05:00 Respiratory Rate 18 10/04/18 08:00 Blood Pressure 110/64 10/04/18 05:00 O2 Sat by Pulse Oximetry (%) 99 10/04/18 08:00 HEENT: Mm moist, no anemia, PERRLA EOMI NECK: No JVD No Bruit CHEST: CTA B/L CVS; S1S2 R ABD: No distention , non tender Bs + EXT: Rt knee Lateral aspect small pustule s/p I and D, surrounding indurated area regressed no Joint swelling or effusion, Rt axillary lesion improving. MUSIC COPYIST: AOX3 non focal Labs: CBC, BMP 10/04/18 07:30 10/04/18 07:30 Problem List - Problems (1) Abscess Assessment/Plan: Purulent Cellulitis with abscess formation culture on 10/01 Grew MRSA , moderate infection, improving with current therapy, Hot compresses, contact isolation. Needs decolonization with Mupricon and Chlorhexidine cont Clindamycine Code(s): L02.91 - CUTANEOUS ABSCESS, UNSPECIFIED (2) Diabetes Assessment/Plan: Uncontrolled T2DM: Hold Po meds , Diabetic Diet, Levimir 35 units bed time and Humalog 10 units pre meal TID and correction dose insulin. Code(s): E11.9 - TYPE 2 DIABETES MELLITUS WITHOUT COMPLICATIONS
[2018-10-04] MEDS: VANCOMYCIN 1 GRAM (PRE-DOCKED) 1,000 MG/250 ML BAG IVPB SCH (16:37)
[2018-10-04] MEDS ORDERED: INSULIN (NOVOLOG) ASPART 100 UNITS/ML 10ML VIAL ONE (21:13)
--- NOTE | 2018-10-04 21:22 | PN ---
Progress Note (short form) - Note Progress Note: ID CONSULT DICTATED SOFT TISSUE ABSCESS. CELLULITIS MRSA VANCOMYCIN SURGICAL EVALUATION FOR I&D
[2018-10-04] MEDS: ATORVASTATIN CA 40 MG TABLET (FP) PO SCH (21:23)
[2018-10-04] MEDS: INSULIN (LEVEMIR) 100 UNITS/ML UNITS SQ SCH (21:23)
[2018-10-04] MEDS ORDERED: CHLORHEXIDINE GLUCONATE 4% CLEANSER FOR DECOLONIZATION TP SCH ×2 (22:00)
[2018-10-05] MEDS: VANCOMYCIN 1 GRAM (PRE-DOCKED) 1,000 MG/250 ML BAG IVPB SCH ×2 (03:20→15:26)
[2018-10-05] MEDS: HEPARIN NA (PORCINE) 5,000 UNITS/ML 1ML VIAL SQ SCH ×3 (06:12→22:08)
[2018-10-05] MEDS: INSULIN SLIDING SCALE (NOVOLOG) 1 VIAL SQ SCH ×4 (06:12→22:08)
[2018-10-05] MEDS ORDERED: INSULIN (NOVOLOG) ASPART 100 UNITS/ML 10ML VIAL ONE ×3 (06:22→21:18)
--- NOTE | 2018-10-05 08:44 | CONS ---
INFECTIOUS DISEASE CONSULTATION DATE OF CONSULTATION: 10/04/2018 The patient is a 58-year-old female who is evaluated for right lower extremity cellulitis and soft tissue abscess. The patient had developed a "boil" on the right lower extremity. She presented to the emergency room on October 01, 2018. An incision and drainage was performed, and she was discharged home on Keflex and Bactrim. Wound culture subsequently grew MRSA. Post discharge from the emergency room, she developed worsening erythema, warmth, and swelling of the right lower extremity and elevated blood sugars. She returned to the emergency room where she was found to have cellulitis of the right lower extremity and was admitted. At the present time, she reports clinical improvement on the antibiotic therapy. She denies any associated fever or chills. PAST MEDICAL HISTORY: Positive for insulin-dependent diabetes mellitus. ALLERGIES: No known allergies. MEDICATIONS: Glucophage, aspirin, insulin, Lipitor, Victoza, Norvasc, gabapentin, glipizide. LABORATORY DATA: White count 5.8. Creatinine 0.6. Urine leukocyte esterase negative. Wound culture positive MRSA. PHYSICAL EXAMINATION: General: She is awake and alert, out of bed to chair, in no acute distress. Vital Signs: Temperature 97.7; blood pressure 108/57; pulse 74, regular; respirations 18 per minute. HEENT: Sclerae anicteric. Heart: Sounds S1, S2. Lungs: Clear. Abdomen: Soft and nontender. Extremities: There is an approximately 3-cm area of induration, erythema, and swelling at the inferior aspect of the right patella. There is no fluctuance or expressible pus. IMPRESSION: 1. Soft tissue abscess/cellulitis of the right lower extremity. 2. Positive wound culture, methicillin-resistant Staphylococcus aureus. 3. Diabetes mellitus. Advise IV vancomycin, warm compresses, analgesics, surgical evaluation for possible incision and drainage, contact precautions. Thank you for the kind referral. EVE ARREGUIN M.D. [id number]
[2018-10-05] MEDS: amLODIPine BESYLATE 10 MG TABLET (FP) PO SCH (09:13)
[2018-10-05] MEDS: GABAPENTIN 400 MG CAPSULE (FP) PO SCH (09:13)
[2018-10-05] MEDS: SOLIFENACIN SUCCINATE 5 MG TAB (FP) PO SCH (09:13)
[2018-10-05] MEDS: ASPIRIN 81 MG CHEWABLE TABLETS PO SCH (09:13)
--- NOTE | 2018-10-05 09:18 | PN ---
Progress Note, Physician Chief Complaint: Patient remained afebrile, Rt knee lesion improved significantly surrounding cellulitis has almost regressed. - Current Medication List Current Medications: Active Medications Amlodipine Besylate (Norvasc -) 10 mg PO DAILY [facility] Last Admin: 10/05/18 09:13 Dose: 10 mg Aspirin (Asa -) 81 mg PO DAILY [facility] Last Admin: 10/05/18 09:13 Dose: 81 mg Atorvastatin Calcium (Lipitor -) 40 mg PO HS [facility] Last Admin: 10/04/18 21:23 Dose: 40 mg Chlorhexidine Gluconate (Hibiclens For Decolonization -) 1 applic TP HS [facility] Gabapentin (Neurontin -) 400 mg PO DAILY [facility] Last Admin: 10/05/18 09:13 Dose: 400 mg Heparin Sodium (Porcine) (Heparin -) 5,000 unit SQ TID [facility] Last Admin: 10/05/18 06:12 Dose: 5,000 unit Vancomycin HCl (Vancomycin (Pre-Docked)) 1,000 mg in 250 mls @ 166.667 mls/hr IVPB BID@0400,1600 [facility]; Protocol Last Admin: 10/05/18 03:20 Dose: 166.667 mls/hr Insulin Aspart (Novolog Vial Sliding Scale -) 1 vial SQ ACHS [facility]; Protocol Last Admin: 10/05/18 06:12 Dose: Not Given Insulin Detemir (Levemir Vial) 35 units SQ [facility] Last Admin: 10/04/18 21:23 Dose: 35 units Mupirocin (Bactroban Ointment (For Decolonization) -) 1 applic NS BID [facility] Stop: 10/09/18 09:59 Solifenacin (Vesicare -) 5 mg PO DAILY [facility] Last Admin: 10/05/18 09:13 Dose: 5 mg - Objective Vital Signs: Vital Signs Temperature 97.6 F 10/05/18 05:53 Pulse Rate 68 10/05/18 05:53 Respiratory Rate 20 10/05/18 05:53 Blood Pressure 119/59 L 10/05/18 05:53 O2 Sat by Pulse Oximetry (%) 99 10/05/18 00:00 HEENT: Mm moist, no anemia, PERRLA EOMI NECK: No JVD No Bruit CHEST: CTA B/L CVS; S1S2 R ABD: No distention , non tender Bs + EXT: Rt knee Lateral aspect small pustule s/p I and D, surrounding indurated area regressed no Joint swelling or effusion, Rt axillary lesion improving. 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 Needs decolonization with Mupricon and Chlorhexidine cont Clindamycine Code(s): L02.91 - CUTANEOUS ABSCESS, UNSPECIFIED (2) Diabetes Assessment/Plan: Uncontrolled T2DM: Hold Po meds , Diabetic Diet, Levimir 35 units bed time and Humalog 10 units pre meal TID and correction dose insulin. Code(s): E11.9 - TYPE 2 DIABETES MELLITUS WITHOUT COMPLICATIONS (3) Diabetic neuropathy Assessment/Plan: on Gabapentin Code(s): E11.40 - TYPE 2 DIABETES MELLITUS WITH DIABETIC NEUROPATHY, UNSP (4) Hypercholesteremia Code(s): E78.00 - PURE HYPERCHOLESTEROLEMIA, UNSPECIFIED
--- NOTE | 2018-10-05 15:33 | CONSULT ---
Consult Consult Specialty:: General Surgery Referred by:: Dr. Sierra Reason for Consultation:: right knee abscess - History of Present Illness Chief Complaint: right knee abscess History of Present Illness: 58yo F with HTN, HLD, DM, recurrent abscesses, was seen in ER 10/01 with swollen, red, painful bump on right knee, just below patella, and small pustular lesion in right axilla. Her sugars had also been very high. The knee abscess was drained by ER with culture that grew MRSA, and she was sent home on Bactrim DS bid and Keflex 500mg bid, but returned for check 10/03 with larger area of redness and still with pain and high sugars, and was admitted for IV antibiotics. She is on Vanco per ID. The site has been improving, but surgery is asked to assess. She is seen in her bed, at bedside. She speaks mostly [place] but was able to communicate effectively with me. She reports no fever or chills, no nausea, no diarrhea. She states she is much better, no pain now, and that it was larger and redder before. She uses a walker at home to ambulate, has a cane here to walk in her room. She appears comfortable and is able to flex and extend her leg fully. - History Source History Provided By: Patient, Medical Record Limitations to Obtaining History: Language Barrier ([place], but able to communicate effectively) - Past Medical History Cardio/Vascular: Yes: HTN, Hyperlipdemia Pulmonary: No: Asthma Renal/: Yes: Other (urinary incontinence). No: Renal Calculi Reproductive: Yes: Postmenopausal Infectious Disease: Yes: MRSA Endocrine: Yes: Diabetes Mellitus Dermatology: Yes: Other (skin abscesses) - Past Surgical History Past Surgical History: Yes: (lower midline scar) Additional Surgical History: I&D of R infrapatellar abscess by ER 10/01/18 - Alcohol/Substance Use Hx Alcohol Use: No History of Substance Use: reports: None - Smoking History Smoking history: Never smoked Have you smoked in the past 12 months: No - Social History Usual Living Arrangement: With Spouse Home Medications - Allergies Allergies/Adverse Reactions: Allergies Allergy/AdvReac Type Severity Reaction Status Date / Time No Known Allergies Allergy Verified 10/03/18 11:02 - Home Medications Home Medications: Ambulatory Orders Insulin Glulisine [Apidra Solostar] 5 unit SQ BID 06/04/14 Atorvastatin Ca [Lipitor] 40 mg PO HS 05/14/18 Insulin Glargine,Hum.rec.anlog [Bouchra Julio U-100] 35 unit SQ HS 05/14/18 Liraglutide [Victoza -] 1.2 mg SQ DAILY@0700 05/14/18 Amlodipine Besylate [Norvasc -] 10 mg PO DAILY 05/18/18 Gabapentin 400 mg PO DAILY 05/18/18 Glipizide [Glipizide ER] 2.5 mg PO BID 05/18/18 Metformin HCl [Glucophage] 100 mg PO BID 05/18/18 Oxybutynin Chloride [Oxybutynin Chloride ER] 10 mg PO DAILY 05/18/18 Aspirin [ASA -] 1 tab PO DAILY 07/19/18 Cephalexin Monohydrate [Keflex -] 500 mg PO BID #14 capsule 10/01/18 Sulfamethoxazole/Trimethoprim [Bactrim Ds -] 1 tab PO BID #14 tablet 10/01/18 Family Disease History - Family Disease History Family History: Unremarkable (noncontributory) Review of Systems - Review of Systems Constitutional: denies: Chills, Fever Eyes: reports: Other (left eye ptosis). denies: Recent Change in Vision HENT: denies: Difficult Swallowing, Throat Pain Neck: denies: Swollen Glands, Tenderness Cardiovascular: denies: Chest Pain, Palpitations Respiratory: denies: Cough, SOB Gastrointestinal: denies: Abdominal Pain, Constipation, Diarrhea, Nausea, Vomiting Genitourinary: reports: Incontinence (better on her medication). denies: Burning, Dysuria Musculoskeletal: denies: Back Pain, Joint Pain Integumentary: reports: Erythema (with hpi), Lump (with hpi), Wound (with hpi), Other (small bump R axilla, also improved) Neurological: denies: Dizziness, Headache Physical Exam Vital Signs: Vital Signs Temperature 98.2 F 10/05/18 14:41 Pulse Rate 73 10/05/18 14:41 Respiratory Rate 18 10/05/18 14:41 Blood Pressure 118/65 10/05/18 14:41 O2 Sat by Pulse Oximetry (%) 95 10/05/18 10:00 Constitutional: Yes: Well Nourished, No Distress, Calm Eyes: Yes: Conjunctiva Clear, EOM Intact, Ptosis (left eyelid) HENT: Yes: Atraumatic, Normocephalic Neck: Yes: Supple, Trachea Midline Cardiovascular: Yes: Regular Rate and Rhythm, Murmur (systolic) Respiratory: Yes: Regular, CTA Bilaterally Gastrointestinal: Yes: Soft, Other (well-healed lower midline scar). No: Distention, Tenderness ...Rectal Exam: Yes: Deferred Renal/: No: CVA Tenderness - Left, CVA Tenderness - Right Musculoskeletal: No: Joint Stiffness, Joint Swelling Extremities: No: Cool, Cyanosis Edema: No Peripheral Pulses WNL: Yes Integumentary: Yes: Erythema (local at right knee - see below), Incision (right infrapatellar site), Other (small pale/pink bump in right axilla, no drainage, no surrounding erythema, nontender, much improved per patient). No: Jaundice, Rash Wound/Incision: Yes: Dressing Dry and Intact, Dressing Removed, Reddened (mild local erythema to ~2-3cm), Unapproximated, Other (small nontender bump at right infrapatellar site, central yellow spot with adjacent pink 2-3mm incised area, focal resolving induration, no active drainage but tiny drop of ?purulent/white material expressed with squeeze - opened with tip of cotton-tipped applicator with only clean, red base exposed; dressed with folded 2x2 gauze and tape). No : Draining Neurological: Yes: Alert, Oriented Psychiatric: Yes: Alert, Oriented Labs: CBC, BMP 10/04/18 07:30 10/04/18 07:30 no new labs sugars normal and 220s alternating Imaging - Results Other: Other (no imaging obtained) Problem List - Problems (1) Abscess of right knee Assessment/Plan: MRSA abscess right knee, s/p I&D in ER 4d ago, significantly improved by report nontender with minimal residual cellulitis evident on exam no residual purulence no indication for additional I&D at this time continue daily gauze dressings and antibiotics per ID glucose control Tylenol prn for pain encourage ambulation and OOB as able will need to complete abx course PO at home on discharge per ID - anticipate likely to finish Bactrim DS she already has or Clindamycin 300mg q6H for another 5-7 days once d/c'd Ketera was underdosed - would have her return remainder to pharmacy for disposal will check again tomorrow Thank you for the opportunity to participate in the care of this patient. Code(s): L02.415 - CUTANEOUS ABSCESS OF RIGHT LOWER LIMB (2) Cellulitis of right knee Code(s): L03.115 - CELLULITIS OF RIGHT LOWER LIMB (3) MRSA infection Code(s): A49.02 - METHICILLIN RESIS STAPH INFECTION, UNSP SITE (4) Diabetes mellitus with skin complication, with long-term current use of insulin Assessment/Plan: resume all home meds and optimize glucose control Code(s): E11.628 - TYPE 2 DIABETES MELLITUS WITH OTHER SKIN COMPLICATIONS; Z79.4 - RETIREMENT (CURRENT) USE OF INSULIN Qualifiers: Diabetes mellitus type: type 2 Diabetes mellitus complication detail: with other skin complication Qualified Code(s): E11.628 - Type 2 diabetes mellitus with other skin complications; Z79.4 - supervisor intermediates (current) use of insulin (5) HTN (hypertension) Code(s): I10 - ESSENTIAL (PRIMARY) HYPERTENSION Qualifiers: Hypertension type: essential hypertension Qualified Code(s): I10 - Essential (primary) hypertension (6) Hypercholesteremia Code(s): E78.00 - PURE HYPERCHOLESTEROLEMIA, UNSPECIFIED
[2018-10-05] MEDS ORDERED: INSULIN (LEVEMIR) 100 UNITS/ML UNITS SQ SCH (22:00)
[2018-10-05] MEDS: ATORVASTATIN CA 40 MG TABLET (FP) PO SCH (22:08)
[2018-10-06] MEDS: VANCOMYCIN 1 GRAM (PRE-DOCKED) 1,000 MG/250 ML BAG IVPB SCH ×2 (04:27→17:27)
[2018-10-06] MEDS: INSULIN SLIDING SCALE (NOVOLOG) 1 VIAL SQ SCH ×2 (06:23→11:03)
[2018-10-06] MEDS: HEPARIN NA (PORCINE) 5,000 UNITS/ML 1ML VIAL SQ SCH ×2 (06:24→13:41)
--- NOTE | 2018-10-06 08:25 | PN ---
Progress Note, Physician Chief Complaint: Patient remained afebrile, Rt knee lesion improved significantly surrounding cellulitis has almost regressed. - Current Medication List Current Medications: Active Medications Amlodipine Besylate (Norvasc -) 10 mg PO DAILY [facility] Last Admin: 10/05/18 09:13 Dose: 10 mg Aspirin (Asa -) 81 mg PO DAILY [facility] Last Admin: 10/05/18 09:13 Dose: 81 mg Atorvastatin Calcium (Lipitor -) 40 mg PO HS [facility] Last Admin: 10/05/18 22:08 Dose: 40 mg Gabapentin (Neurontin -) 400 mg PO DAILY [facility] Last Admin: 10/05/18 09:13 Dose: 400 mg Heparin Sodium (Porcine) (Heparin -) 5,000 unit SQ TID [facility] Last Admin: 10/06/18 06:24 Dose: 5,000 unit Vancomycin HCl (Vancomycin (Pre-Docked)) 1,000 mg in 250 mls @ 166.667 mls/hr IVPB BID@0400,1600 [facility]; Protocol Last Admin: 10/06/18 04:27 Dose: 166.667 mls/hr Insulin Aspart (Novolog Vial Sliding Scale -) 1 vial SQ [facility]; Protocol Last Admin: 10/06/18 06:23 Dose: Not Given Insulin Detemir (Levemir Vial) 38 units SQ [facility] Last Admin: 10/05/18 22:08 Dose: 38 units Solifenacin (Vesicare -) 5 mg PO DAILY [facility] Last Admin: 10/05/18 09:13 Dose: 5 mg - Objective Vital Signs: Vital Signs Temperature 97.4 F L 10/06/18 05:42 Pulse Rate 60 10/06/18 05:42 Respiratory Rate 20 10/06/18 05:42 Blood Pressure 125/66 10/06/18 05:42 O2 Sat by Pulse Oximetry (%) 97 10/05/18 21:00 HEENT: Mm moist, no anemia, PERRLA EOMI NECK: No JVD No Bruit CHEST: CTA B/L CVS; S1S2 R ABD: No distention , non tender Bs + EXT: Rt knee Lateral aspect small pustule s/p I and D, surrounding indurated area regressed no Joint swelling or effusion, Rt axillary lesion improving. 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
[2018-10-06 09:04] LABS: BASO % 0.6 % (0-2.0); EOS % 1.5 % (0-4.5); HEMATOCRIT 38.8 % (32.4-45.2); HEMOGLOBIN 12.4 GM/dL (10.7-15.3); LYMPH % 27.1 % (8-40); MCH 27.5 pg (25.7-33.7); MEAN CELL VOLUME 86.1 fl (80-96); MONO % 7.3 % (3.8-10.2); NEUT % 63.5 % (42.8-82.8); PLATELET COUNT 231 K/MM3 (134-434); RBC 4.51 M/mm3 (3.60-5.2); RDW 13.3 % (11.6-15.6); WHITE BLOOD COUNT 4.6 K/mm3 (4.0-10.0)
[2018-10-06] MEDS: ASPIRIN 81 MG CHEWABLE TABLETS PO SCH (09:22)
[2018-10-06] MEDS: SOLIFENACIN SUCCINATE 5 MG TAB (FP) PO SCH (09:22)
[2018-10-06] MEDS: GABAPENTIN 400 MG CAPSULE (FP) PO SCH (09:22)
[2018-10-06] MEDS: amLODIPine BESYLATE 10 MG TABLET (FP) PO SCH (09:22)
[2018-10-06 09:34] LABS: ANION GAP 9 MMOL/L (8-16); BLOOD UREA NITROGEN 11 mg/dL (7-18); CALCIUM 8.4 mg/dL (8.5-10.1); CHLORIDE 103 mmol/L (98-107); CO2 27 mmol/L (21-32); CREATININE 0.5 mg/dL (0.55-1.3); GLUCOSE,RANDOM 231 mg/dL (74-106); POTASSIUM 4.5 mmol/L (3.5-5.1); SODIUM 139 mmol/L (136-145)
--- NOTE | 2018-10-06 11:53 | DS ---
Physical Examination Vital Signs: Vital Signs Temperature 98.0 F 10/06/18 10:00 Pulse Rate 75 10/06/18 10:00 Respiratory Rate 20 10/06/18 10:00 Blood Pressure 135/69 10/06/18 10:00 O2 Sat by Pulse Oximetry (%) 96 10/06/18 09:00 HEENT: Mm moist, no anemia, PERRLA EOMI NECK: No JVD No Bruit CHEST: CTA B/L CVS; S1S2 R ABD: No distention , non tender Bs + EXT: Rt knee Lateral aspect small pustule s/p I and D, surrounding indurated area regressed no Joint swelling or effusion, Rt axillary lesion improving. 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 focal Labs: CBC, BMP 10/06/18 08:00 10/06/18 08:00 Discharge Summary Reason For Visit: CELLULITIS Current Active Problems Abscess of right knee (Acute) Cellulitis (Acute) Cellulitis of right knee (Acute) Diabetes mellitus with skin complication, with long-term current use of insulin (Acute) Diabetic neuropathy (Acute) HTN (hypertension) (Acute) Hypercholesteremia (Acute) MRSA infection (Acute) Hospital Course: 58 yrs old F with uncontrolled T2DM, HTN, Dyslipedemia admitted with Rt knee MRSA skin infection with abscess formation and surrounduing area cellulitis 1 day before Hospitalization , patient was dischraged home from ED after I and D on Bactrim and Cephalexine, eremained symptomatic so came to Ed for evaluation , culture Grew MRSA considering uncontrolled T2DM admitted for IV abx for MRSA patient recived Clindamycine for a day subsequently switched to Vancomycine by ID, patient improved significantly , evaluated by Surgery consult recommonded no indication of I and D at present, patient is educated for Glycemic control and wound care. Will F/U with her PMD. Condition: Stable - Instructions Diet, Activity, Other Instructions: Please claen and Dress wound afater warm compreses Wet to Dry Saline dressing Decontamination with Chlorhexidine body wash and Bactroban Nasal ont. Vist your PMD in a wk Disposition: HOME - Home Medications Comprehensive Discharge Medication List: Ambulatory Orders Insulin Glulisine [Apidra Solostar] 5 unit SQ BID 06/04/14 Atorvastatin Ca [Lipitor] 40 mg PO HS 05/14/18 Insulin Glargine,Hum.rec.anlog [Basaglar Kwikpen U-100] 35 unit SQ HS 05/14/18 Liraglutide [Victoza -] 1.2 mg SQ DAILY@0700 05/14/18 Amlodipine Besylate [Norvasc -] 10 mg PO DAILY 05/18/18 Gabapentin 400 mg PO DAILY 05/18/18 Glipizide [Glipizide ER] 2.5 mg PO BID 05/18/18 Metformin HCl [Glucophage] 100 mg PO BID 05/18/18 Aspirin [ASA -] 1 tab PO DAILY 07/19/18 Sulfamethoxazole/Trimethoprim [Bactrim DS -] 1 tab PO BID #14 tablet 10/01/18 Chlorhexidine Gluconate [Hibiclens For Decolonization -] 1 applic TP HS #1 bottle 10/06/18 Solifenacin Succinate [Vesicare -] 5 mg PO DAILY #30 tab 10/06/18
[2018-10-06 15:13] VITALS: BP 124/62; PULSE 64; TEMP 97.3
--- NOTE | 2018-10-06 16:46 | PN ---
Progress Note, Physician History of Present Illness: 58yo F with HTN, HLD, DM, recurrent abscesses, was seen in ER 10/01 with swollen, red, painful bump on right knee, just below patella, and small pustular lesion in right axilla. Her sugars had also been very high. The knee abscess was drained by ER with culture that grew MRSA, and she was sent home on Bactrim DS bid and Keflex 500mg bid, but returned for check 10/03 with larger area of redness and still with pain and high sugars, and was admitted for IV antibiotics. She is on Vanco per ID. The site has been improving, but surgery is asked to assess. She is seen sitting up in lounge chair, at bedside. She speaks mostly [place] but was able to communicate effectively with me. She reports no fever or chills, no nausea, no diarrhea. She reports feeling very well, much better, no pain now. She appears comfortable and is able to flex and extend her leg fully. Wound is dressed. - Current Medication List Current Medications: Active Medications Amlodipine Besylate (Norvasc -) 10 mg PO DAILY [facility] Last Admin: 10/06/18 09:22 Dose: 10 mg Aspirin (Asa -) 81 mg PO DAILY [facility] Last Admin: 10/06/18 09:22 Dose: 81 mg Atorvastatin Calcium (Lipitor -) 40 mg PO HS [facility] Last Admin: 10/05/18 22:08 Dose: 40 mg Gabapentin (Neurontin -) 400 mg PO DAILY [facility] Last Admin: 10/06/18 09:22 Dose: 400 mg Heparin Sodium (Porcine) (Heparin -) 5,000 unit SQ TID [facility] Last Admin: 10/06/18 13:41 Dose: 5,000 unit Vancomycin HCl (Vancomycin (Pre-Docked)) 1,000 mg in 250 mls @ 166.667 mls/hr IVPB BID@0400,1600 [facility]; Protocol Last Admin: 10/06/18 04:27 Dose: 166.667 mls/hr Insulin Aspart (Novolog Vial Sliding Scale -) 1 vial SQ [facility]; Protocol Last Admin: 10/06/18 11:03 Dose: 2 units Insulin Detemir (Levemir Vial) 38 units SQ HS [facility] Last Admin: 10/05/18 22:08 Dose: 38 units Solifenacin (Vesicare -) 5 mg PO DAILY [facility] Last Admin: 10/06/18 09:22 Dose: 5 mg - Objective Vital Signs: Vital Signs Temperature 97.3 F L 10/06/18 15:08 Pulse Rate 64 10/06/18 15:08 Respiratory Rate 18 10/06/18 15:08 Blood Pressure 124/62 10/06/18 15:08 O2 Sat by Pulse Oximetry (%) 96 10/06/18 09:00 Constitutional: Yes: Well Nourished, No Distress, Calm Eyes: Yes: Conjunctiva Clear, EOM Intact HENT: Yes: Atraumatic, Normocephalic Musculoskeletal: No: Joint Stiffness, Joint Swelling Extremities: No: Cool, Cyanosis Integumentary: Yes: Erythema (minimal local to right knee wound). No: Jaundice , Rash Wound/Incision: Yes: Dressing Dry and Intact, Dressing Removed (and changed for 2x2 gauze with corner tucked into skin edges of I&D site - clean, red, no drainage, nontender), Reddened (fading erythema, local induration softening), Unapproximated (2mm open spot, only 2mm deep, gently probed with cotton-tip) Neurological: Yes: Alert, Oriented Labs: CBC, BMP 10/06/18 08:00 10/06/18 08:00 Problem List - Problems (1) Abscess of right knee Assessment/Plan: MRSA abscess right knee, s/p I&D in ER 5d ago, significantly improved nontender with minimal residual cellulitis evident on exam no residual purulence no indication for additional I&D at this time continue daily gauze dressings and antibiotics per ID glucose control Tylenol prn for pain encourage ambulation and OOB as able complete abx course PO at home on discharge per ID - Bactrim DS x7 days pt being discharged to see PMD within the week ok to shower with dressing off, keep covered with 2x2 gauze would NOT use saline dressing - wound not big enough to pack, no wet dressing on intact skin Code(s): L02.415 - CUTANEOUS ABSCESS OF RIGHT LOWER LIMB (2) Cellulitis of right knee Code(s): L03.115 - CELLULITIS OF RIGHT LOWER LIMB (3) MRSA infection Code(s): A49.02 - METHICILLIN RESIS STAPH INFECTION, UNSP SITE (4) Diabetes mellitus with skin complication, with long-term current use of insulin Code(s): E11.628 - TYPE 2 DIABETES MELLITUS WITH OTHER SKIN COMPLICATIONS; Z79.4 - PATIENT BILLER (CURRENT) USE OF INSULIN Qualifiers: Diabetes mellitus type: type 2 Diabetes mellitus complication detail: with other skin complication Qualified Code(s): E11.628 - Type 2 diabetes mellitus with other skin complications; Z79.4 - roasterman (current) use of insulin (5) HTN (hypertension) Code(s): I10 - ESSENTIAL (PRIMARY) HYPERTENSION Qualifiers: Hypertension type: essential hypertension Qualified Code(s): I10 - Essential (primary) hypertension (6) Hypercholesteremia Code(s): E78.00 - PURE HYPERCHOLESTEROLEMIA, UNSPECIFIED
== END 2018-10-06 17:46 | disposition home or self-care (01) | DRG 383 ==
LOC: JER 10:56 → JERFT 10:56 → JERBED 15:59 → J6S 18:55 → OBSVTOIN 10-05 14:30
PROVIDERS: ADMIT Internal Medicine; ATTEND Internal Medicine
DX: L02.415 Cutaneous abscess of right lower limb (principal); E87.1 Hypo-osmolality and hyponatremia; L03.115 Cellulitis of right lower limb; E11.40 Type 2 diabetes mellitus with diabetic neuropathy, unspecified; I10 Essential (primary) hypertension; E78.5 Hyperlipidemia, unspecified; E11.65 Type 2 diabetes mellitus with hyperglycemia; Z79.4 Long term (current) use of insulin; A49.02 Methicillin resistant Staphylococcus aureus infection, unspecified site
CPT/HCPCS: 36415; 80048; 80053; 81003; 82962; 83036; 85025; 87040; 87070; 87086; 87205; 93005; 93010; 99282-25; G0378; J1644; J7030

== ENCOUNTER 2018-11-10 12:16 | Emergency (ER) | payer OTHER ==
[2018-11-10 12:23] VITALS: BP 127/66; PULSE 80; TEMP 97.8; BMI 28.3
--- NOTE | 2018-11-10 12:58 | PDOC ---
History of Present Illness - General Chief Complaint: Back Pain Stated Complaint: BACK PAIN Time Seen by Provider: 11/10/18 12:46 History Source: Patient, Client Technical Support Associate Used (#[id number]) Exam Limitations: Clinical Condition - History of Present Illness Initial Comments: 11/10/18 13:13 Patient with history of diabetes and chronic back pains present with complaint of pain to left lower back radiating to back of left thigh area. Patient also reported three-day history of nasal congestion, body aches, sore throat and chills. Patient feels she might have the flu. She denies fever, vomiting or abdominal symptoms. Patient denies any other symptoms Timing/Duration: other (3 days) Past History - Past Medical History Allergies/Adverse Reactions: Allergies Allergy/AdvReac Type Severity Reaction Status Date / Time No Known Allergies Allergy Verified 11/10/18 12:23 Home Medications: Ambulatory Orders Insulin Glulisine [Apidra Solostar] 5 unit SQ BID 06/04/14 Atorvastatin Ca [Lipitor] 40 mg PO HS 05/14/18 Insulin Glargine,Hum.rec.anlog [Basaglar Kwikpen U-100] 35 unit SQ HS 05/14/18 Liraglutide [Victoza -] 1.2 mg SQ DAILY@0700 05/14/18 Amlodipine Besylate [Norvasc -] 10 mg PO DAILY 05/18/18 Gabapentin 400 mg PO DAILY 05/18/18 Glipizide [Glipizide ER] 2.5 mg PO BID 05/18/18 Metformin HCl [Glucophage] 100 mg PO BID 05/18/18 Aspirin [ASA -] 1 tab PO DAILY 07/19/18 Sulfamethoxazole/Trimethoprim [Bactrim DS -] 1 tab PO BID #14 tablet 10/01/18 Chlorhexidine Gluconate [Hibiclens For Decolonization -] 1 applic TP HS #1 bottle 10/06/18 Solifenacin Succinate [Vesicare -] 5 mg PO DAILY #30 tab 10/06/18 Sulfamethoxazole/Trimethoprim [Bactrim Ds -] 1 tab PO BID #14 tablet 10/06/18 Ipratropium [place] 2 spray NS BID PRN #1 spray 11/10/18 Methocarbamol [Robaxin -] 500 mg PO Q8H PRN #21 tablet 11/10/18 Naproxen 500 mg PO BID PRN #20 tablet 11/10/18 Oseltamivir Phosphate [Tamiflu] 75 mg PO BID 5 Days #10 capsule 11/10/18 Prednisone 10 mg PO BID 4 Days #8 tablet 11/10/18 COPD: No Diabetes: Yes HTN: Yes Hypercholesterolemia: Yes Psychiatric Problems: Yes (DEPRESSION) - Surgical History Abdominal Surgery: Yes (TUBAL LIGATION) Orthopedic Surgery: Yes (left knee + a finger) - Immunization History Immunization Up to Date: No - Suicide/Smoking/Psychosocial Hx Smoking Status: No Smoking History: Never smoked Have you smoked in the past 12 months: No Number of Cigarettes Smoked Daily: 0 Hx Alcohol Use: No Drug/Substance Use Hx: No Substance Use Type: None Hx Substance Use Treatment: No Review of Systems - Review of Systems Able to Perform ROS?: Yes Is the patient limited Citizen [place] proficient: No Constitutional: No: Fever, Weakness HEENTM: Yes: Symptoms Reported, See HPI, Nose Congestion, Throat Pain. No: Eye Pain, Blurred Vision, Tearing, Recent change in vision, Double Vision, Cataracts , Ear Pain, Ocular Prothesis, Ear Discharge, Nose Pain, Tinnitus, Nose Bleeding , Hearing Loss, Throat Swelling, Mouth Pain, Dental Problems, Difficulty Swallowing, Mouth Swelling, Other Respiratory: No: Symptoms reported, See HPI, Cough, Orthopnea, Shortness of Breath, SOB with Exertion, SOB at Rest, Stridor, Wheezing, Productive cough, Hemoptysis, Other Cardiac (ROS): No: Symptoms Reported, See HPI, Chest Pain, Edema, Irregular Heart Rate, Lightheadedness, Palpitations, Syncope, Chest Tightness, Other ABD/GI: No: Constipated, Diarrhea, Nausea, Vomiting, Abdominal cramping : No: Burning, Dysuria, Frequency, Urgency Musculoskeletal: Yes: Back Pain (left lower back going down to left thigh), Muscle Pain (left side lower back). No: Muscle Weakness Neurological: No: Numbness, Paresthesia, Tingling, Weakness All Other Systems: Reviewed and Negative *Physical Exam - Vital Signs Last Vital Signs Temp Pulse Resp BP Pulse Ox 97.8 F 80 18 127/66 99 11/10/18 12:20 11/10/18 12:20 11/10/18 12:20 11/10/18 12:20 11/10/18 12:20 - Physical Exam Comments: 11/10/18 13:16 GENERAL: Well developed, well nourished. Awake and alert. No acute distress. HEENT: Normocephalic, atraumatic. PERRLA, EOMI. No conjunctival pallor. Sclera are non-icteric. Moist mucous membranes. Oropharynx is clear. NECK: Supple. Full ROM. CARDIOVASCULAR: Regular rate and rhythm. No murmurs, rubs, or gallops. Distal pulses are 2+ and symmetric. PULMONARY: No evidence of respiratory distress. Lungs clear to auscultation bilaterally. No wheezing, rales or rhonchi. ABDOMINAL: Soft. Non-tender. Non-distended. No rebound or guarding. No organomegaly. Normoactive bowel sounds. MUSCULOSKELETAL : moderate tenderness to left paravertebral muscle of L4-S1. no midline tenderness. negative straight leg raise test.Normal range of motion at all joints. EXTREMITIES: No cyanosis. No clubbing. No edema. No calf tenderness. SKIN: Warm and dry. Normal capillary refill. No rashes. No jaundice. NEUROLOGICAL: Alert, awake, appropriate. Gait is normal without ataxia. PSYCHIATRIC: Cooperative. Good eye contact. Appropriate mood General Appearance: Yes: Nourished, Appropriately Dressed. No: Apparent Distress Moderate Sedation - Procedure Monitoring Vital Signs: Procedure Monitoring Vital Signs Temperature 97.8 F 11/10/18 12:20 Pulse Rate 80 11/10/18 12:20 Respiratory Rate 18 11/10/18 12:20 Blood Pressure 127/66 11/10/18 12:20 O2 Sat by Pulse Oximetry (%) 99 11/10/18 12:20 Medical Decision Making - Medical Decision Making 11/10/18 13:18 Patient with history of diabetes and chronic back pains present with complaint of pain to left lower back radiating to back of left thigh area. Patient also reported three-day history of nasal congestion, body aches, sore throat and chills. Patient feels she might have the flu. Exam significant for moderate tenderness to left paravertebral muscle of L4-S1. no midline tenderness. negative straight leg raise test.Normal range of motion at all joints. lungs CTAB. normal cardio exam. no throat erythema. Symptoms likely lumbago with sciatica to lower back. Patient also with URI symptoms consistent with viral syndrome. Rapid strep and rapid flu tests ordered. Toradol was 30 mg IM and cyclobenzaprine 5 mg by mouth given for back pain. Treat based on lab results 11/10/18 13:43 rapid flu positive for flu A. rapid strep negative. Patient stable for outpatient treatment for influenza and sciatica with neurospine f/u *DC/Admit/Observation/Transfer Diagnosis at time of Disposition: Sciatica Qualifiers: Laterality: left Qualified Code(s): M54.32 - Sciatica, left side Lumbago with sciatica, left side Qualifiers: Chronicity: chronic Back pain laterality: left Qualified Code(s): M54.42 - Lumbago with sciatica, left side - Prescriptions Prescriptions: Ipratropium [place] 2 spray NS BID PRN #1 spray PRN Reason: nasal congestion Methocarbamol [Robaxin -] 500 mg PO Q8H PRN #21 tablet PRN Reason: Back Pain Naproxen 500 mg PO BID PRN #20 tablet PRN Reason: Back Pain Oseltamivir Phosphate [Tamiflu] 75 mg PO BID 5 Days #10 capsule Prednisone 10 mg PO BID 4 Days #8 tablet - Referrals Referrals: Jay Bella MD, FAANS [Staff Physician] - - Patient Instructions Printed Discharge Instructions: DI for Back Pain With Sciatica Additional Instructions: Your rapid flu was positive. Take medication as prescribed. Increase fluid intake. Follow-up referred orthopedics spine for chronic back pains. Print Language: SLOVENIAN - Post Discharge Activity
[2018-11-10] MEDS ORDERED: CYCLOBENZAPRINE HCL 10 MG TABLET (FP) PO ONE (13:08)
[2018-11-10] MEDS ORDERED: KETOROLAC TROMETHAMINE 30 MG/1 ML VIAL IM ONE (13:09)
[2018-11-10] MEDS ORDERED: KETOROLAC TROMETHAMINE 30 MG/1 ML VIAL ONE (13:15)
[2018-11-10] MEDS ORDERED: CYCLOBENZAPRINE HCL 10 MG TABLET (FP) ONE (13:15)
== END 2018-11-10 13:52 | disposition home or self-care (01) ==
LOC: JERFT 12:16
PROC: 3E0233Z Introduction of Anti-inflammatory into Muscle, Percutaneous Approach (ICD-10-PCS; principal; 2018-11-10)
DX: M54.42 Lumbago with sciatica, left side (principal); I10 Essential (primary) hypertension; E78.00 Pure hypercholesterolemia, unspecified; E11.9 Type 2 diabetes mellitus without complications; Z79.84 Long term (current) use of oral hypoglycemic drugs; F32.9 Major depressive disorder, single episode, unspecified
CPT/HCPCS: 87070; 87804; 87880; 96372; 99281-25

== ENCOUNTER 2019-01-23 12:06 | Emergency (ER) | payer OTHER ==
[2019-01-23 12:29] VITALS: BP 144/76; PULSE 96; TEMP 97.9; BMI 28.3
[2019-01-23] MEDS ORDERED: SULFAMETHOXAZOLE/TRIMETHOPRIM 800MG/160MG D.S. TABLET PO ONE (13:00)
--- NOTE | 2019-01-23 13:03 | PDOC ---
History of Present Illness - General Chief Complaint: Rash Stated Complaint: RT ARM BOILS Time Seen by Provider: 01/23/19 12:41 History Source: Patient Exam Limitations: No Limitations - History of Present Illness Initial Comments: 01/23/19 13:02 Patient came for evaluation of multiple lesions under her right armpit. 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 Continues to shave her armpits and has had frequent folliculitis associated with same. Has never been diagnosed with hydradenitis Timing/Duration: reports: getting worse Severity: Yes: mild, moderate Location: reports: other Past History - Past Medical History Allergies/Adverse Reactions: Allergies Allergy/AdvReac Type Severity Reaction Status Date / Time No Known Allergies Allergy Verified 01/23/19 12:29 Home Medications: Ambulatory Orders Insulin Glulisine [Apidra Solostar] 5 unit SQ BID 06/04/14 Atorvastatin Ca [Lipitor] 40 mg PO HS 05/14/18 Insulin Glargine,Hum.rec.anlog [Basaglar Kwikpen U-100] 35 unit SQ HS 05/14/18 Liraglutide [Victoza -] 1.2 mg SQ DAILY@0700 05/14/18 Amlodipine Besylate [Norvasc -] 10 mg PO DAILY 05/18/18 Gabapentin 400 mg PO DAILY 05/18/18 Glipizide [Glipizide ER] 2.5 mg PO BID 05/18/18 Metformin HCl [Glucophage] 100 mg PO BID 05/18/18 Aspirin [ASA -] 1 tab PO DAILY 07/19/18 Sulfamethoxazole/Trimethoprim [Bactrim DS -] 1 tab PO BID #14 tablet 10/01/18 Chlorhexidine Gluconate [Hibiclens For Decolonization -] 1 applic TP HS #1 bottle 10/06/18 Solifenacin Succinate [Vesicare -] 5 mg PO DAILY #30 tab 10/06/18 Sulfamethoxazole/Trimethoprim [Bactrim Ds -] 1 tab PO BID #14 tablet 10/06/18 Ipratropium [place] 2 spray NS BID PRN #1 spray 11/10/18 Methocarbamol [Robaxin -] 500 mg PO Q8H PRN #21 tablet 11/10/18 Naproxen 500 mg PO BID PRN #20 tablet 11/10/18 Oseltamivir Phosphate [Tamiflu] 75 mg PO BID 5 Days #10 capsule 11/10/18 Prednisone 10 mg PO BID 4 Days #8 tablet 11/10/18 Sulfamethoxazole/Trimethoprim [Bactrim *Ds*] 1 each PO BID #14 tablet 01/23/19 Cardiac Disorders: Yes COPD: No Diabetes: Yes HTN: Yes Hypercholesterolemia: Yes Psychiatric Problems: Yes (DEPRESSION) - Surgical History Abdominal Surgery: Yes (TUBAL LIGATION) Orthopedic Surgery: Yes (left knee + a finger) - Immunization History Immunization Up to Date: No - Suicide/Smoking/Psychosocial Hx Smoking Status: No Smoking History: Never smoked Have you smoked in the past 12 months: No Number of Cigarettes Smoked Daily: 0 Information on smoking cessation initiated: No Hx Alcohol Use: No Drug/Substance Use Hx: No Substance Use Type: None Hx Substance Use Treatment: No *Physical Exam - Vital Signs Last Vital Signs Temp Pulse Resp BP Pulse Ox 97.9 F 96 H 19 144/76 100 01/23/19 12:27 01/23/19 12:27 01/23/19 12:27 01/23/19 12:27 01/23/19 12:27 - Physical Exam General Appearance: Yes: Nourished, Appropriately Dressed, Apparent Distress, Mild Distress HEENT: positive: JHONATHAN, Normal ENT Inspection, TMs Normal, Pharynx Normal Neck: positive: Supple, Lymphadenopathy (R), Lymphadenopathy (L) Respiratory/Chest: positive: Lungs Clear, Normal Breath Sounds Extremity: positive: Normal Capillary Refill, Normal Inspection, Normal Range of Motion Integumentary: positive: Erythema, Swelling, Other (multiple ~ 9 non pointing lesions to right axilla, various stages of presentation- none consolidated. 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 Patient understands to hot soak as much as possible to bring abscesses to head to allow drainage. Otherwise return here tomorrow for incision and drainage as needed. Given first dose of Bactrim here *DC/Admit/Observation/Transfer Diagnosis at time of Disposition: Abscess - Discharge Dispostion Disposition: HOME Condition at time of disposition: Stable Decision to Admit order: No - Prescriptions Prescriptions: Sulfamethoxazole/Trimethoprim [Bactrim *Ds*] 1 each PO BID #14 tablet - Referrals Referrals: Leigh Ann Ragsdale MD [Staff Physician] - - Patient Instructions Printed Discharge Instructions: Hidradenitis Suppurativa, DI for Skin Abscess Additional Instructions: Rest, keep area elevated. Avoid strenuous activity or exercise until wound is healed Use hot soaks to area to bring more blood to the surface and encourage drainage May change dressings as needed to keep clean - Allow water from shower to wash area thoroughly for 2-3 minutes, and pat dry upon exit of shower and replace dressing. Change his dressing daily until the wound is completely healed. May use Tylenol or Motrin for mild pain relief Continue all medications as prescribed Followup with private physician in 2-3 days for wound check Return to emergency Department for worsening swelling, pain, redness, fevers as needed - Post Discharge Activity
[2019-01-23] MEDS ORDERED: SULFAMETHOXAZOLE/TRIMETHOPRIM 800MG/160MG D.S. TABLET ONE (13:04)
== END 2019-01-23 13:49 | disposition home or self-care (01) ==
LOC: JERFT 12:06
DX: L02.411 Cutaneous abscess of right axilla (principal); I10 Essential (primary) hypertension; E11.9 Type 2 diabetes mellitus without complications; Z79.84 Long term (current) use of oral hypoglycemic drugs; E78.00 Pure hypercholesterolemia, unspecified; F32.9 Major depressive disorder, single episode, unspecified; Z86.14 Personal history of Methicillin resistant Staphylococcus aureus infection
CPT/HCPCS: 99281-25

== ENCOUNTER 2019-01-27 09:33 | Emergency (ER) | payer OTHER ==
[2019-01-27 10:22] VITALS: BP 134/72; PULSE 95; TEMP 98; BMI 27.4
--- NOTE | 2019-01-27 11:18 | PDOC ---
History of Present Illness - General Chief Complaint: Abscess Boil Stated Complaint: RT UNDERARM CYCTS Time Seen by Provider: 01/27/19 10:45 - History of Present Illness Initial Comments: 01/27/19 11:15 58-year-old female presents for evaluation of multiple painful areas under her right axilla. She was seen in the emergency room a few days ago placed on Bactrim and told to return back to the emergency room she has been doing warm compresses. She has been afebrile the entire time. Past History - Past Medical History Allergies/Adverse Reactions: Allergies Allergy/AdvReac Type Severity Reaction Status Date / Time No Known Allergies Allergy Verified 01/27/19 10:22 Home Medications: Ambulatory Orders Insulin Glulisine [Apidra Solostar] 5 unit SQ BID 06/04/14 Atorvastatin Ca [Lipitor] 40 mg PO HS 05/14/18 Insulin Glargine,Hum.rec.anlog [Basaglar Kwikpen U-100] 35 unit SQ HS 05/14/18 Liraglutide [Victoza -] 1.2 mg SQ DAILY@0700 05/14/18 Amlodipine Besylate [Norvasc -] 10 mg PO DAILY 05/18/18 Gabapentin 400 mg PO DAILY 05/18/18 Glipizide [Glipizide ER] 2.5 mg PO BID 05/18/18 Metformin HCl [Glucophage] 100 mg PO BID 05/18/18 Aspirin [ASA -] 1 tab PO DAILY 07/19/18 Sulfamethoxazole/Trimethoprim [Bactrim DS -] 1 tab PO BID #14 tablet 10/01/18 Chlorhexidine Gluconate [Hibiclens For Decolonization -] 1 applic TP HS #1 bottle 10/06/18 Solifenacin Succinate [Vesicare -] 5 mg PO DAILY #30 tab 10/06/18 Sulfamethoxazole/Trimethoprim [Bactrim Ds -] 1 tab PO BID #14 tablet 10/06/18 Ipratropium [place] 2 spray NS BID PRN #1 spray 11/10/18 Methocarbamol [Robaxin -] 500 mg PO Q8H PRN #21 tablet 11/10/18 Naproxen 500 mg PO BID PRN #20 tablet 11/10/18 Oseltamivir Phosphate [Tamiflu] 75 mg PO BID 5 Days #10 capsule 11/10/18 Prednisone 10 mg PO BID 4 Days #8 tablet 11/10/18 Sulfamethoxazole/Trimethoprim [Bactrim *Ds*] 1 each PO BID #14 tablet 01/23/19 Cardiac Disorders: Yes COPD: No Diabetes: Yes HTN: Yes Hypercholesterolemia: Yes Psychiatric Problems: Yes (DEPRESSION) - Surgical History Abdominal Surgery: Yes (TUBAL LIGATION) Orthopedic Surgery: Yes (left knee + a finger) - Immunization History Immunization Up to Date: No - Suicide/Smoking/Psychosocial Hx Smoking Status: No Smoking History: Never smoked Have you smoked in the past 12 months: No Number of Cigarettes Smoked Daily: 0 Information on smoking cessation initiated: No Hx Alcohol Use: No Drug/Substance Use Hx: No Substance Use Type: None Hx Substance Use Treatment: No Review of Systems - Review of Systems Integumentary: Yes: Lesions *Physical Exam - Vital Signs Last Vital Signs Temp Pulse Resp BP Pulse Ox 98.0 F 95 H 18 134/72 100 01/27/19 10:19 01/27/19 10:19 01/27/19 10:19 01/27/19 10:19 01/27/19 10:19 - Physical Exam Comments: 01/27/19 11:16 There are multiple greater than 5 areas of pustules in the right axilla with erythematous indurated outer rims and mild axillary adenopathy. There is no areas of fluctuance which can be I&D. There are no gross sensorimotor deficits in the right upper extremity. Medical Decision Making - Medical Decision Making 01/27/19 11:16 I've advised her to continue with warm compresses and Bactrim. I've given her general surgery follow-up. This is most likely hidradenitis which should be treated by general surgeon she may require extensive excision. *DC/Admit/Observation/Transfer Diagnosis at time of Disposition: Abscess - Discharge Dispostion Disposition: HOME Condition at time of disposition: Stable Decision to Admit order: No - Referrals Referrals: Anthony Tucker [Primary Care Provider] - Jb Sen MD [Staff Physician] - - Patient Instructions Additional Instructions: Please follow-up with general surgery within the next 1-2 days for further evaluation and treatment options. Tylenol as directed for pain. Continue with the antibiotics as prescribed. Return to the emergency room for worsening symptoms. This condition is best treated by a general surgeon. - Post Discharge Activity
== END 2019-01-27 11:22 | disposition home or self-care (01) ==
LOC: JER 09:33 → JERFT 09:33
DX: L02.411 Cutaneous abscess of right axilla (principal); I10 Essential (primary) hypertension; E78.00 Pure hypercholesterolemia, unspecified; E11.9 Type 2 diabetes mellitus without complications; Z79.4 Long term (current) use of insulin; F32.9 Major depressive disorder, single episode, unspecified
CPT/HCPCS: 99281-25

== ENCOUNTER 2019-02-27 11:15 | Emergency (ER) | payer OTHER ==
[2019-02-27 11:26] VITALS: BMI 30.6
--- NOTE | 2019-02-27 12:02 | PDOC ---
History of Present Illness - General Chief Complaint: Wound Stated Complaint: MIDDLE FINGER INJURY Time Seen by Provider: 02/27/19 12:02 - History of Present Illness Initial Comments: 58yo F with PMH of HTN, HLD, DM, multiple abscesses, MSRA presenting with right third digit pain and right axilla pain. Patient states she has had pain in these areas for the past week. They have been draining yellow fluid at times. She has used warm compresses at home as well as nabumetone at home with minimal relief of her pain which she rates over 10/10. Patient was unable to see her primary care physician but did see other specialists, one of whom prescribed her Augmentin on 02/20/19. Patient has had multiple skin infections, first starting three years ago. Per chart review, patient failed outpatient therapy for an abscess and was admitted for IV antibiotics. She was evaluated by a surgeon and surgical I&D was not indicated at the time. Patient states she has been on multiple courses of antibiotics and has had multiple I&Ds performed in the past. Denies chest pain, shortness of breath, abdominal pain, nausea, or vomiting. Endorses chills, but no fever. 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 Past History - Past Medical History Allergies/Adverse Reactions: Allergies Allergy/AdvReac Type Severity Reaction Status Date / Time No Known Allergies Allergy Verified 01/27/19 10:22 Home Medications: Ambulatory Orders Insulin Glulisine [Apidra Solostar] 5 unit SQ BID 06/04/14 Atorvastatin Ca [Lipitor] 40 mg PO HS 05/14/18 Insulin Glargine,Hum.rec.anlog [Wilaglyan Julio U-100] 35 unit SQ HS 05/14/18 Liraglutide [Victoza -] 1.2 mg SQ DAILY@0700 05/14/18 Amlodipine Besylate [Norvasc -] 10 mg PO DAILY 05/18/18 Gabapentin 400 mg PO DAILY 05/18/18 Glipizide [Glipizide ER] 2.5 mg PO BID 05/18/18 Metformin HCl [Glucophage] 100 mg PO BID 05/18/18 Aspirin [ASA -] 1 tab PO DAILY 07/19/18 Sulfamethoxazole/Trimethoprim [Bactrim DS -] 1 tab PO BID #14 tablet 10/01/18 Chlorhexidine Gluconate [Hibiclens For Decolonization -] 1 applic TP HS #1 bottle 10/06/18 Solifenacin Succinate [Vesicare -] 5 mg PO DAILY #30 tab 10/06/18 Sulfamethoxazole/Trimethoprim [Bactrim Ds -] 1 tab PO BID #14 tablet 10/06/18 Ipratropium [place] 2 spray NS BID PRN #1 spray 11/10/18 Methocarbamol [Robaxin -] 500 mg PO Q8H PRN #21 tablet 11/10/18 Naproxen 500 mg PO BID PRN #20 tablet 11/10/18 Oseltamivir Phosphate [Tamiflu] 75 mg PO BID 5 Days #10 capsule 11/10/18 Prednisone 10 mg PO BID 4 Days #8 tablet 11/10/18 Sulfamethoxazole/Trimethoprim [Bactrim *Ds*] 1 each PO BID #14 tablet 01/23/19 Clindamycin [Cleocin -] 450 mg PO ONCE #60 capsule 02/27/19 Cardiac Disorders: Yes COPD: No Diabetes: Yes HTN: Yes Hypercholesterolemia: Yes Psychiatric Problems: Yes (DEPRESSION) - Surgical History Abdominal Surgery: Yes (TUBAL LIGATION) Orthopedic Surgery: Yes (left knee + a finger) - Immunization History Immunization Up to Date: No - Suicide/Smoking/Psychosocial Hx Smoking Status: No Smoking History: Never smoked Have you smoked in the past 12 months: No Number of Cigarettes Smoked Daily: 0 Information on smoking cessation initiated: No Hx Alcohol Use: No Drug/Substance Use Hx: No Substance Use Type: None Hx Substance Use Treatment: No Review of Systems - Review of Systems Comments:: Constitutional: no fever, +chills HEENT: no throat pain, no dysphagia Cardiovascular: no chest pain, no palpitations Respiratory: no cough, no shortness of breath Gastrointestinal: no abdominal pain, no nausea Genitourinary: no dysuria, no frequency Musculoskeletal: no myalgia, no arthralgia Skin: +abscess, +cellulitis Neurologic: no headache, no dizziness *Physical Exam - Vital Signs Last Vital Signs Temp Pulse Resp BP Pulse Ox 115 H 16 131/74 95 02/27/19 11:20 02/27/19 11:20 02/27/19 11:20 02/27/19 11:20 - Physical Exam Comments: General: Awake, alert, and fully oriented, in no acute distress Head: No signs of trauma Eyes: EOMI, sclera anicteric ENT: Moist mucus membranes Neck: Normal ROM, supple Lungs: Lungs clear, Normal breath sounds Cardio: Regular rhythm, S1 and S2 present Abdomen: Soft, nontender. No guarding, no rebound, no masses Extremities: Normal range of motion, Distal pulses present SKIN: Warm, Dry, normal turgor Right hand: Paronychia present on distal phalanx of third digit on right hand with erythema, edema, induration, fluctuance. No fluid expressed. Neurovascularly intact. Left axilla: 9 non pointing lesions various stages of presentation, with one prominent head, no discharge expressed and no fluctuance Right axilla: 2 non pointing lesions, no erythema or induration, no discharge expressed. No fluctuance Neurologic: Cranial nerves II through XII grossly intact. Normal speech Procedures - Incision and Drainage I&D Site: Left: Axilla, Paronychia Anesthesia: 1% Lidocaine Volume(ml): 3 Blade Size: 11 Plain Packing: No Complications: none Dressing: Yes Progress: Right axilla: Lidocaine administered. Prominent lesion unroofed with 18 gauge needle. No fluid expressed. Right third digit paronychia: Digital block administered. 15 blade inserted along lateral aspect of nailbed. Blood and yellow pus expressed. Patient tolerated procedure well. Medical Decision Making - Medical Decision Making 58yo F with PMH of HTN, HLD, DM, multiple abscesses, MSRA presenting with right third digit pain and right axilla pain Injuries consistent with paronychia requiring incision and drainage Bedside ultrasound shows cobblestoning with no prominently visible pockets in the right axilla Clindamycin 450 TID x 7 days to cover for MRSA 650mg tylenol for pain, however I&D will like help more significantly in alleviating her pain 02/27/19 13:26 I&D performed Patient tolerated procedure well Patient to follow up with her primary care physician for wound check in 2-3 days. If she cannot make an appointment, she will return to the ED for evaluation. 02/27/19 14:19 *DC/Admit/Observation/Transfer Diagnosis at time of Disposition: Paronychia - Discharge Dispostion Disposition: HOME Condition at time of disposition: Stable - Prescriptions Prescriptions: Clindamycin [Cleocin -] 450 mg PO ONCE #60 capsule - Referrals Referrals: Anthony Tucker [Primary Care Provider] - - Patient Instructions Printed Discharge Instructions: DI for Paronychia, DI for Incision and Drainage Additional Instructions: You came to the ED for a skin infection. We drained the area and gave you one dose of antibiotics to start your course here. Antibiotics prescription sent to your pharmacy. Stop the other antibiotic ( amoxicillin-clavulanate) you were prescribed. Take as instructed on the label. Follow-up with your primary care physician in 2-3 days for wound check. Your workup is not complete until you do so. Call and make an appointment. If you cannot be seen by a doctor in two to three days, come to this emergency department for wound check. Rest, keep area elevated. Avoid strenuous activity or exercise until wound is healed Use hot soaks to area to bring more blood to the surface and encourage drainage May change dressings as needed to keep clean - Allow water from shower to wash area thoroughly for 2-3 minutes, and pat dry upon exit of shower and replace dressing. Change this dressing daily until the wound is completely healed. May use Tylenol or Motrin for mild pain relief Continue all medications as prescribed. Return to emergency Department for worsening swelling, pain, redness, fevers as needed === Usted vino a la olga de emergencias por lynda infeccin en la piel. Agotamos el tash y le dimos lynda dosis de antibiticos para comenzar ghotra curso aqu. Receta de antibiticos enviada a ghotra farmacia. Detenga el otro antibitico ( amoxicilina-clavulanato) que le recetaron. Cathleen domenico se indica en la etiqueta. David un seguimiento con ghotra mdico de atencin primaria en 2-3 santizo para la revisin de la herida. Ghotra preparacin no est completa hasta que lo david. Llame y david lynda alvino. Si no puede ser visto por un mdico de cabecera en dos o tamika santizo, acuda al departamento de emergencias para que le revisen las heridas. Descanse, mantenga el tash elevada. Evite la actividad vigorosa o el ejercicio hasta que la herida se cure. Use remojos calientes en el tash para traer ms meg a la superficie y alentar el drenaje Puede cambiar los apsitos segn sea necesario para mantenerlos limpios. Deje que el agua de la ducha lave el tash a fondo ellen 2-3 minutos, y squela al salir de la ducha y reemplace el apsito. Cambie jas apsito diariamente hasta que la herida est completamente curada. Puede usar Tylenol o Motrin para aliviar el dolor leve Continuar todos los medicamentos segn lo prescrito. Regrese a la olga de emergencias para empeorar la hinchazn, el dolor, el enrojecimiento y la fiebre segn sea necesario. - Post Discharge Activity
[2019-02-27] MEDS ORDERED: ACETAMINOPHEN 325 MG TABLET (FP) PO ONE (13:03)
[2019-02-27] MEDS ORDERED: CLINDAMYCIN HCL 150 MG CAPSULE (FP) PO ONE (13:03)
[2019-02-27] MEDS ORDERED: ACETAMINOPHEN 325 MG TABLET (FP) ONE (13:09)
[2019-02-27] MEDS ORDERED: CLINDAMYCIN HCL 150 MG CAPSULE (FP) ONE (13:09)
[2019-02-27] MEDS ORDERED: LIDOCAINE HCL 1%, 10 MG/ML (50 mL VIAL) SQ ONE (13:26)
[2019-02-27] MEDS ORDERED: LIDOCAINE HCL 1%, 10 MG/ML (20ML VIAL) ONE (13:34)
[2019-02-27 14:18] VITALS: BP 138/72; PULSE 99
== END 2019-02-27 14:18 | disposition home or self-care (01) ==
LOC: JER 11:15
PROC: BH47ZZZ Ultrasonography of Upper Extremity (ICD-10-PCS; principal; 2019-02-27)
PROC: 0J9J0ZZ Drainage of Right Hand Subcutaneous Tissue and Fascia, Open Approach (ICD-10-PCS; 2019-02-27)
PROC: 0X940ZZ Drainage of Right Axilla, Open Approach (ICD-10-PCS; 2019-02-27)
PROC: 3E013BZ Introduction of Anesthetic Agent into Subcutaneous Tissue, Percutaneous Approach (ICD-10-PCS; 2019-02-27)
DX: L02.411 Cutaneous abscess of right axilla (principal); L03.011 Cellulitis of right finger; I10 Essential (primary) hypertension; E11.9 Type 2 diabetes mellitus without complications; Z79.4 Long term (current) use of insulin; E78.00 Pure hypercholesterolemia, unspecified; F32.9 Major depressive disorder, single episode, unspecified; Z86.14 Personal history of Methicillin resistant Staphylococcus aureus infection
CPT/HCPCS: 99281-25

== ENCOUNTER 2019-03-01 10:42 | Emergency (ER) | payer OTHER ==
[2019-03-01 11:07] VITALS: BP 123/78; PULSE 85; TEMP 97.9; BMI 30.6
[2019-03-01] MEDS ORDERED: SODIUM CHLORIDE 1,000 ML IV ONE (11:53)
--- NOTE | 2019-03-01 12:15 | PDOC ---
History of Present Illness - General Chief Complaint: Blood Sugar Problem Stated Complaint: HYPERGLYCEMIA Time Seen by Provider: 03/01/19 11:52 - History of Present Illness Initial Comments: 03/01/19 12:14 58 yo F with h/o HTN, HLD, poorly controlled IDDM, recurrent abscesses who p/w dizziness, and hyperglycemia. Patient referred to ED by PMD following elevated BS in office Glu~500+, and symptom of unsteady gait, during office ambulation. Patient does not recall how long symptom has been present. Currently denies lightheadedness, or dizziness at bedside. Recently evaluated in [facility] Ed R axilla abscess with I&D, started on Clindamycin 9002/27/19. Has been compliant with antibiotic and daily insulin. Patient denies ALCALA, vision change, palpitations, cough, wheezing, orthopena, PND , leg swelling/pain, N/V, F,C, CP, SOB, urinary complaints, hematuria, BPR, abdominal pain, diarrhea, constipation, weakness, sensory changes. PMHx: as noted above ROS: as noted SHx: Denies Etoh, IVDA Allergies: NKDA Past History - Past Medical History Allergies/Adverse Reactions: Allergies Allergy/AdvReac Type Severity Reaction Status Date / Time No Known Allergies Allergy Verified 01/27/19 10:22 Home Medications: Ambulatory Orders Insulin Glulisine [Apidra Solostar] 5 unit SQ BID 06/04/14 Atorvastatin Ca [Lipitor] 40 mg PO HS 05/14/18 Insulin Glargine,Hum.rec.anlog [Basaglar Kwikpen U-100] 35 unit SQ HS 05/14/18 Liraglutide [Victoza -] 1.2 mg SQ DAILY@0700 05/14/18 Amlodipine Besylate [Norvasc -] 10 mg PO DAILY 05/18/18 Gabapentin 400 mg PO DAILY 05/18/18 Glipizide [Glipizide ER] 2.5 mg PO BID 05/18/18 Metformin HCl [Glucophage] 100 mg PO BID 05/18/18 Aspirin [ASA -] 1 tab PO DAILY 07/19/18 Solifenacin Succinate [Vesicare -] 5 mg PO DAILY #30 tab 10/06/18 Ipratropium [place] 2 spray NS BID PRN #1 spray 11/10/18 Methocarbamol [Robaxin -] 500 mg PO Q8H PRN #21 tablet 11/10/18 Naproxen 500 mg PO BID PRN #20 tablet 11/10/18 Sulfamethoxazole/Trimethoprim [Bactrim *Ds*] 1 each PO BID #14 tablet 01/23/19 Cardiac Disorders: Yes COPD: No Diabetes: Yes HTN: Yes Hypercholesterolemia: Yes Psychiatric Problems: Yes (DEPRESSION) - Surgical History Abdominal Surgery: Yes (TUBAL LIGATION) Orthopedic Surgery: Yes (left knee + a finger) - Immunization History Immunization Up to Date: No - Suicide/Smoking/Psychosocial Hx Smoking Status: No Smoking History: Never smoked Have you smoked in the past 12 months: No Number of Cigarettes Smoked Daily: 0 Hx Alcohol Use: No Drug/Substance Use Hx: No Substance Use Type: None Hx Substance Use Treatment: No Review of Systems - Review of Systems Comments:: 03/01/19 13:06 GENERAL/CONSTITUTIONAL: No fever or chills. No weakness. HEAD, EYES, EARS, NOSE AND THROAT: No change in vision. No ear pain or discharge. No sore throat. CARDIOVASCULAR: No chest pain or shortness of breath RESPIRATORY: No cough, wheezing, or hemoptysis. GASTROINTESTINAL: No nausea, vomiting, diarrhea or constipation. GENITOURINARY: No dysuria, frequency, or change in urination. MUSCULOSKELETAL: No joint or muscle swelling or pain. No neck or back pain. SKIN: + abscesses. No rash NEUROLOGIC: + Lightheadedness. No headache, vertigo, loss of consciousness, or change in strength/sensation. ENDOCRINE: No increased thirst. No abnormal weight change HEMATOLOGIC/LYMPHATIC: No anemia, easy bleeding, or history of blood clots. ALLERGIC/IMMUNOLOGIC: No hives or skin allergy. *Physical Exam - Vital Signs Last Vital Signs Temp Pulse Resp BP Pulse Ox 97.9 F 85 18 123/78 98 03/01/19 11:06 03/01/19 11:06 03/01/19 11:06 03/01/19 11:06 03/01/19 11:06 - Physical Exam Comments: 03/01/19 13:06 GENERAL: Awake, alert, and fully oriented, in no acute distress HEAD: No signs of trauma, normocephalic, atraumatic EYES: PERRLA, EOMI, sclera anicteric, conjunctiva clear ENT: Auricles normal inspection, hearing grossly normal, nares patent, oropharynx clear without exudates. Moist mucosa NECK: Normal ROM, supple, no lymphadenopathy, JVD, or masses LUNGS: No distress, speaks full sentences, clear to auscultation bilaterally HEART: Regular rate and rhythm, normal S1 and S2, no murmurs, rubs or gallops, peripheral pulses normal and equal bilaterally. ABDOMEN: Soft, nontender, normoactive bowel sounds. No guarding, no rebound. No masses EXTREMITIES :+ R distal 3rd digit circumferential edema and ttp at superior to DIP, with absent warmth/ertyhema/discharge. Patient states improved with 1/2 size reduction following I&D (02/27/19). Ext otherwise Normal inspection, Normal range of motion, no edema. No clubbing or cyanosis. NEUROLOGICAL: Cranial nerves II through XII grossly intact. Normal speech, normal gait, no focal sensorimotor deficits SKIN: + 2 mm rasied lesion right axilla, with absent discharge, fluctuance, streaking, erythema. Skin otherwise Warm, Dry, normal turgor. ED Treatment Course - LABORATORY CBC & Chemistry Diagram: 03/01/19 12:10 03/01/19 12:10 Medical Decision Making - Medical Decision Making 03/01/19 13:04 58 yo F with h/o HTN, HLD, poorly controlled IDDM, recurrent abscesses who p/w dizziness, and hyperglycemia. Vitals wnl, AF, A&Ox3. Denies ALCALA, cough, wheezing , leg swelling/pain, N/V, F,C, CP, SOB, urinary complaints, hematuria, BPR, abdominal pain, diarrhea, constipation, weakness, sensory changes. Will assess for DKA, HHS, hyperglycemia. Will assess for VBI/TIA, cardiac dysarrythmias, electrolyte abnml, metabolic and toxic derangements, acid-base disturbances, infection. ED Course: 03/01/19 13:09 EKG: NSR with low voltage QRS, absent KEL, STD. Nml interval duration and axis. abnml R wave progression. 03/01/19 14:06 Laboratory Tests 03/01/19 03/01/19 03/01/19 12:10 12:10 12:30 WBC 4.2 Hgb 13.4 Hct 41.1 Plt Count 269 VBG pH POC VBG pCO2 POC VBG pO2 VBG HCO3 Random Glucose 336 H* Urine Appearance Clear Urine Glucose (UA) 3+ H Urine Ketones Negative Urine Nitrite Negative Ur Leukocyte Esterase Negative 03/01/19 12:30 WBC Hgb Hct Plt Count VBG pH 7.38 POC VBG pCO2 44.5 POC VBG pO2 73.5 H VBG HCO3 25.5 Random Glucose Urine Appearance Urine Glucose (UA) Urine Ketones Urine Nitrite Ur Leukocyte Esterase Patient stable for d/c with return precautions Advised to continue Clindamycin and f/u with PMD *DC/Admit/Observation/Transfer Diagnosis at time of Disposition: Hyperglycemia - Discharge Dispostion Disposition: HOME Condition at time of disposition: Stable Decision to Admit order: No - Referrals Referrals: Anthony Tucker [Primary Care Provider] - Roxy Houston MD [Staff Physician] - - Patient Instructions Printed Discharge Instructions: DI for Hyperglycemia -- Adult Additional Instructions: Please return to the emergency department with any new or worsening symptoms or concerns. Please follow up with your primary care physician within 72 hours. - Post Discharge Activity
[2019-03-01 12:39] LABS: BASO % 0.7 % (0-2.0); EOS % 1.7 % (0-4.5); HEMATOCRIT 41.1 % (32.4-45.2); HEMOGLOBIN 13.4 GM/dL (10.7-15.3); LYMPH % 22.8 % (8-40); MCH 28.1 pg (25.7-33.7); MCHC 32.5 g/dl (32.0-36.0); MEAN CELL VOLUME 86.6 fl (80-96); MEAN PLT VOLUME 10.2 fl (7.5-11.1); MONO % 7.7 % (3.8-10.2); NEUT % 67.1 % (42.8-82.8); PLATELET COUNT 269 K/MM3 (134-434); RBC 4.75 M/mm3 (3.60-5.2); RDW 13.4 % (11.6-15.6); WHITE BLOOD COUNT 4.2 K/mm3 (4.0-10.0)
[2019-03-01 12:46] LABS: INR 0.92 (0.83-1.09); PROTHROMBIN TIME (PATIENT) 10.9 SEC (9.7-13.0)
[2019-03-01 12:49] LABS: PH,URINE 5.5 (5.0-8.0); URINE APPEARANCE CLEAR; URINE BILIRUBIN NEGATIVE (NEGATIVE); URINE COLOR YELLOW; URINE GLUCOSE (UA) 3+ (NEGATIVE); URINE KETONE NEGATIVE (NEGATIVE); URINE LEUK ESTERASE NEGATIVE (NEGATIVE); URINE NITRITE NEGATIVE (NEGATIVE); URINE PROTEIN NEGATIVE (NEGATIVE); URINE UROBILINOGEN 0.2 mg/dL (0.2-1.0)
[2019-03-01 12:59] LABS: VENOUS PC02 44.5 mmHg (41-51); VENOUS PH 7.38 (7.31-7.41); VENOUS PO2 73.5 mmHg (30-40)
[2019-03-01 13:07] LABS: ALBUMIN 3.7 g/dl (3.4-5.0); ALK PHOS 113 U/L (45-117); ANION GAP 6 MMOL/L (8-16); BILIRUBIN,TOTAL 0.4 mg/dL (0.2-1); BLOOD UREA NITROGEN 17 mg/dL (7-18); CALCIUM 9.1 mg/dL (8.5-10.1); CHLORIDE 98 mmol/L (98-107); CO2 29 mmol/L (21-32); CREATININE 0.6 mg/dL (0.55-1.3); MAGNESIUM 1.6 mg/dL (1.8-2.4); POTASSIUM 4.7 mmol/L (3.5-5.1); SGOT/AST 24 U/L (15-37); SGPT/ALT 26 U/L (13-61); SODIUM 134 mmol/L (136-145); TOT PROT 7.3 g/dl (6.4-8.2)
[2019-03-01] MEDS ORDERED: SODIUM CHLORIDE 1,000 ML IV STA (13:09)
[2019-03-01 13:20] LABS: GLUCOSE,RANDOM 336 mg/dL (74-106)
--- NOTE | 2019-03-01 14:26 | PDOC ---
Documentation entered by Daniella Barajas SCRIBE, acting as scribe for Collins Camacho MD. Collins Camacho MD: This documentation has been prepared by the Jenn woodard Sammi, SCRIBE, under my direction and personally reviewed by me in its entirety. I confirm that the documentation accurately reflects all work, treatment, procedures, and medical decision making performed by me. Attending Attestation - Resident Resident Name: Josue Kangson - ED Attending Attestation I have performed the following: I have examined & evaluated the patient, The case was reviewed & discussed with the resident, I agree w/resident's findings & plan - HPI HPI: 03/01/19 14:23 58-year-old female with history of diabetes on insulin, history of MRSA abscesses recently in requiring incision and drainage of axillary and digit abscess on antibiotics, seen by her PCP today for routine follow-up appointment when she was noted to have hyperglycemia and a brief episode of lightheadedness. Patient states that since her glucose levels have been high over the last couple of days, she has been a little lightheaded on occasion, it lasts a few seconds and resolves, predominantly with standing. She has no chest pain or actual loss of consciousness, she has no headache or focal neurological deficits. The patient was reported as having gait disturbance, but she clarifies that she simply felt lightheaded when she stood up and it resolved after about 30 seconds. - Physicial Exam PE: 03/01/19 14:24 Vital signs normal Well-appearing, ambulating comfortably in the emergency department, at baseline per Exam is atraumatic Neurological exam is normal Heart is regular without murmur, no audible carotid bruit Lungs are clear - Medical Decision Making 03/01/19 14:24 58-year-old female with hyperglycemia, question the setting of recent abscess versus insufficient insulin dosing, rule out DKA. Brief episode of lightheadedness which is most consistent with orthostasis, likely secondary to volume depletion from hyperglycemia. Labs are within normal limits without evidence of DKA CT head is unremarkable EKG and chest x-ray is normal Patient is ambulate comfortably and feels well, lightheadedness resolved after oral and IV fluids Agrees with discharge plan, will continue her antibiotics, understands return criteria Heart Score/ECG Review #1 ECG reviewed & interpreted by me at: 12:23 General ECG Interpretation: Sinus Rhythm, Normal Rate (74), Normal Intervals ( qtc 428), No acute ischemic changes (inferior q wave)
--- NOTE | 2019-03-02 09:19 | EKG ---
Test Reason : Blood Pressure : / mmHG Vent. Rate : 074 BPM Atrial Rate : 074 BPM P-R Int : 144 ms QRS Dur : 078 ms QT Int : 386 ms P-R-T Axes : 000 -19 -10 degrees QTc Int : 428 ms NORMAL SINUS RHYTHM LOW VOLTAGE QRS CANNOT RULE OUT ANTERIOR INFARCT , AGE UNDETERMINED ABNORMAL ECG WHEN COMPARED WITH ECG OF 03-OCT-2018 12:11, NO SIGNIFICANT CHANGE WAS FOUND Confirmed by SCARLETT RENO, CHRISTINA ([id number]) on 03/02/2019 9:19:12 AM Referred By: Confirmed By:CHRISTINA PANTOJA MD
== END 2019-03-01 14:30 | disposition home or self-care (01) ==
LOC: JER 10:42
PROC: 3E0337Z Introduction of Electrolytic and Water Balance Substance into Peripheral Vein, Percutaneous Approach (ICD-10-PCS; principal; 2019-03-01)
DX: E11.65 Type 2 diabetes mellitus with hyperglycemia (principal); Z79.4 Long term (current) use of insulin; I10 Essential (primary) hypertension; E78.5 Hyperlipidemia, unspecified; F32.9 Major depressive disorder, single episode, unspecified; Z87.2 Personal history of diseases of the skin and subcutaneous tissue; Z86.14 Personal history of Methicillin resistant Staphylococcus aureus infection
CPT/HCPCS: 36415; 70450-TC; 71045-TC-FY; 80053; 81003; 82803; 83735; 85025; 85610; 93005; 93010; 96360; 99282-25; J7030

== ENCOUNTER 2019-03-30 23:13 | Emergency (ER) | payer OTHER ==
[2019-03-30 23:29] VITALS: BP 121/72; PULSE 90; TEMP 97.5; BMI 31.1
--- NOTE | 2019-03-30 23:46 | PDOC ---
History of Present Illness - General Chief Complaint: Pain Stated Complaint: PAIN - History of Present Illness Initial Comments: The pt is a 58F w/ a history of reported previous CVA, early dementia, HTN, HLD , poorly controlled DM, spondylolisthesis, R>L sciatica who is presenting for acute on chronic lower back pain, R>L, described as cramps with shooting radiation to her RLE that wraps anteriorly. She denies any recent new fall or trauma but states that she came because her pain is more intense than usual. She has tried taking her usual medications (Nabumetone and Gabapentin) with minimal relief. She denies fevers, acute vision changes, chest pain, trouble breathing, abdominal pain, V/C/D, dysuria, hematuria, or blood in his stool. 03/30/19 23:46 Past History - Past Medical History Allergies/Adverse Reactions: Allergies Allergy/AdvReac Type Severity Reaction Status Date / Time No Known Allergies Allergy Verified 01/27/19 10:22 Home Medications: Ambulatory Orders Insulin Glulisine [Apidra Solostar] 5 unit SQ BID 06/04/14 Atorvastatin Ca [Lipitor] 40 mg PO HS 05/14/18 Insulin Glargine,Hum.rec.anlog [Basaglar Kwikpen U-100] 35 unit SQ HS 05/14/18 Liraglutide [Victoza -] 1.2 mg SQ DAILY@0700 05/14/18 Amlodipine Besylate [Norvasc -] 10 mg PO DAILY 05/18/18 Gabapentin 400 mg PO DAILY 05/18/18 Glipizide [Glipizide ER] 2.5 mg PO BID 05/18/18 Metformin HCl [Glucophage] 100 mg PO BID 05/18/18 Aspirin [ASA -] 1 tab PO DAILY 07/19/18 Solifenacin Succinate [Vesicare -] 5 mg PO DAILY #30 tab 10/06/18 Ipratropium [place] 2 spray NS BID PRN #1 spray 11/10/18 Methocarbamol [Robaxin -] 500 mg PO Q8H PRN #21 tablet 11/10/18 Naproxen 500 mg PO BID PRN #20 tablet 11/10/18 Sulfamethoxazole/Trimethoprim [Bactrim *Ds*] 1 each PO BID #14 tablet 03/28/19 Methocarbamol [Robaxin -] 500 mg PO BID PRN #14 tablet 03/31/19 Cardiac Disorders: Yes COPD: No Diabetes: Yes (NIDDM) HTN: Yes Hypercholesterolemia: Yes Psychiatric Problems: Yes (DEPRESSIONj, dementia) Other medical history: Sciatica,Rheumatoid Arthritis - Surgical History Abdominal Surgery: Yes (TUBAL LIGATION) Orthopedic Surgery: Yes (left knee + a finger) - Immunization History Immunization Up to Date: No - Suicide/Smoking/Psychosocial Hx Smoking Status: No Smoking History: Never smoked Have you smoked in the past 12 months: No Number of Cigarettes Smoked Daily: 0 Hx Alcohol Use: No Drug/Substance Use Hx: No Substance Use Type: None Hx Substance Use Treatment: No Review of Systems - Review of Systems Able to Perform ROS?: Yes Comments:: GENERAL/CONSTITUTIONAL: No fever or chills. No weakness HEAD, EYES, EARS, NOSE AND THROAT: No change in vision. No ear pain or discharge. No sore throat CARDIOVASCULAR: No chest pain or shortness of breath RESPIRATORY: Denies cough, hemoptysis GASTROINTESTINAL: No nausea, vomiting, diarrhea or constipation GENITOURINARY: No dysuria, frequency, or change in urination MUSCULOSKELETAL: +chronic back pain; +chronic sciatica SKIN: No rash NEUROLOGIC: No headache, vertigo, loss of consciousness, or change in strength/ sensation ENDOCRINE: No increased thirst. No abnormal weight change HEMATOLOGIC/LYMPHATIC: No anemia, easy bleeding, or history of blood clots ALLERGIC/IMMUNOLOGIC: No hives or skin allergy 03/30/19 23:45 *Physical Exam - Vital Signs Last Vital Signs Temp Pulse Resp BP Pulse Ox 97.5 F L 90 20 121/72 98 03/30/19 23:24 03/30/19 23:24 03/30/19 23:24 03/30/19 23:24 03/30/19 23:24 - Physical Exam Comments: GENERAL: Awake, alert, and oriented to person/place/time, in no acute distress HEAD: No signs of trauma, normocephalic, atraumatic EYES: PERRLA, EOMI, sclera anicteric, conjunctiva clear ENT: Hearing grossly normal, nares patent, oropharynx clear without exudates. Moist mucosa LUNGS: No distress, speaks full sentences, clear to auscultation bilaterally HEART: Regular rate and rhythm, normal S1 and S2, no murmurs appreciated, peripheral pulses normal and equal bilaterally ABDOMEN: Soft, nontender, normoactive bowel sounds. No guarding, no rebound. No masses EXTREMITIES: moves all extremities independently, no wounds or lesions; able to straight leg raise b/l NEUROLOGICAL: Normal speech. R straight leg raise illicits R low back pain with radiation to posterior leg to mid calf; sensation to light touch intact b/l; Finger to nose and heel to pettit testing intact bilaterally. SKIN: Warm, Dry 03/30/19 23:45 Medical Decision Making - Medical Decision Making The pt is a 58F w/ a history of reported previous CVA, early dementia, HTN, HLD , poorly controlled DM, R>L sciatica who is presenting for acute on chronic lower back pain, R>L. ED Course Pt w/o new traumatic injury Reports some alleviation of symptoms in the past with msk relaxant Will give Valium 5mg PO once and Toradol 30mg IM once for symptomatic relief Will reassess 03/31/19 00:44 Pts pain improved significantly Rx for Robaxin 500mg PO BID PRN for muscle spasm Plan for D/C w/ PCP f/u Discharge instructions and return precautions given Pt in agreement and verbalized understanding Dispo: home 03/31/19 01:44 *DC/Admit/Observation/Transfer Diagnosis at time of Disposition: Acquired spondylolisthesis Sciatica Qualifiers: Laterality: right Qualified Code(s): M54.31 - Sciatica, right side HTN (hypertension) Qualifiers: Hypertension type: unspecified Qualified Code(s): I10 - Essential (primary) hypertension - Discharge Dispostion Disposition: HOME Condition at time of disposition: Improved Decision to Admit order: No - Prescriptions Prescriptions: Methocarbamol [Robaxin -] 500 mg PO BID PRN #14 tablet PRN Reason: Muscle Spasms - Referrals Referrals: Anthony Costello [Other] Sukumar Worthy DO [Staff Physician] - - Patient Instructions Printed Discharge Instructions: DI for Back Pain With Sciatica Additional Instructions: You were seen in the Emergency Department for evaluation of back pain. You were treated with Valium and Toradol. Review the handout provided at discharge. Follow up with your primary care provider within the next 3-5 days. Return to the Emergency Department if you develop fevers/chill, chest pain, trouble breathing, changes in sensation or strength, worsening symptoms, or any new/ concerning symptoms. A prescription for Robaxin was sent to the pharmacy that you specified, take as directed. Do not take before driving or operating machinery. Usted fue atendido en el Departamento de Emergencias para la evaluacin del dolor de espalda. Te trataron con Valium y Toradol. Revise el folleto provisto al momento del criselda. Jess un seguimiento con willis proveedor de atencin primaria en los prximos 3 a 5 santizo. Regrese al Departamento de Emergencias si presenta fiebre / escalofro, dolor en el pecho, dificultad para respirar, cambios en la sensibilidad o en la sensacin, empeoramiento de los sntomas o cualquier sntoma nuevo o relacionado. Se envi lynda receta para Robaxin a la farmacia que usted especific, tome segn las indicaciones. No lo tome antes de conducir o manejar maquinaria. Print Language: [place] CITIZ[place] - Post Discharge Activity
[2019-03-31] MEDS ORDERED: METHOCARBAMOL 750 MG TABLET PO ONE (00:32)
[2019-03-31] MEDS ORDERED: KETOROLAC TROMETHAMINE 30 MG/1 ML VIAL IM ONE (00:35)
[2019-03-31] MEDS ORDERED: diazePAM 5 MG TABLET PO ONE (00:36)
[2019-03-31] MEDS ORDERED: diazePAM 5 MG TABLET ONE (01:07)
[2019-03-31] MEDS ORDERED: KETOROLAC TROMETHAMINE 30 MG/1 ML VIAL ONE (01:07)
--- NOTE | 2019-03-31 01:35 | PDOC ---
Documentation entered by Sharmaine Moss SCRIBE, acting as scribe for Juana Gómez MD. Juana Gómez MD: This documentation has been prepared by the yamilet, Sharmaine Msos SCRIBE, under my direction and personally reviewed by me in its entirety. I confirm that the documentation accurately reflects all work, treatment, procedures, and medical decision making performed by me. Attending Attestation - Resident Resident Name: Dg Méndez - ED Attending Attestation I have performed the following: I have examined & evaluated the patient, The case was reviewed & discussed with the resident, I agree w/resident's findings & plan, Exceptions are as noted - HPI HPI: 03/31/19 00:41 58 y/o female with a history of chronic back pain, CVA, HTN, HLD, DM, and early dementia presents to the emergency department with back pain. The patient presents with chronic back pain, that has increased in severity, minimal relief with medication. The patient states the pain is crampy and shooting in quality, that radiates to the right lower extremity. Denies fever, chills, abdominal pain , or changes in bowel habits. - Physicial Exam PE: 03/31/19 01:20 wnwd 58 yo female with chronic back pain presents with back pain radiating to buttocks and thigh head ncat neck supple lungs cta b/l cvs [id number] abdomen nontender extremities straight leg raises increases pain torso low back pain extending to rt buttocks and going down her anterior thigh skin warm and dry neuro axox3,ambulatory - Medical Decision Making 03/31/19 01:33 this pt denies any urinary or fecal incontinence, she does not have saddle anesthesia, she has no foot drop imp: sciatica plan nsaids/muscle relaxant
== END 2019-03-31 02:44 | disposition home or self-care (01) ==
LOC: JER 23:13
PROC: 3E0233Z Introduction of Anti-inflammatory into Muscle, Percutaneous Approach (ICD-10-PCS; principal; 2019-03-30)
DX: M54.41 Lumbago with sciatica, right side (principal); M43.10 Spondylolisthesis, site unspecified; I10 Essential (primary) hypertension; E11.9 Type 2 diabetes mellitus without complications; E78.00 Pure hypercholesterolemia, unspecified; F03.90 Unspecified dementia, unspecified severity, without behavioral disturbance, psychotic disturbance, mood disturbance, and anxiety; F41.9 Anxiety disorder, unspecified; Z79.84 Long term (current) use of oral hypoglycemic drugs
CPT/HCPCS: 96372; 99281-25

== ENCOUNTER 2019-04-12 00:52 | Emergency (ER) | payer OTHER ==
[2019-04-12] MEDS ORDERED: SODIUM CHLORIDE 0.9% 500 ML INFUS.BAG IV ONE (01:31)
[2019-04-12] MEDS ORDERED: METOCLOPRAMIDE HCL INJECTION 10 MG/2 ML VIAL IVPB ONE (01:31)
[2019-04-12 01:35] VITALS: BMI 29.0
[2019-04-12] MEDS ORDERED: METOCLOPRAMIDE HCL INJECTION 10 MG/2 ML VIAL ONE (01:59)
[2019-04-12 02:02] LABS: INR 0.87 (0.83-1.09); PROTHROMBIN TIME (PATIENT) 10.2 SEC (9.7-13.0)
--- NOTE | 2019-04-12 02:03 | PDOC ---
Documentation entered by Gunjan Garza SCRIBE, acting as scribe for Marleen Baugh MD. Marleen Baugh MD: This documentation has been prepared by the Greg woodard Nirvannie, SCRIBE, under my direction and personally reviewed by me in its entirety. I confirm that the documentation accurately reflects all work, treatment, procedures, and medical decision making performed by me. History of Present Illness - General Chief Complaint: Nausea/Vomiting Stated Complaint: VOMITING Time Seen by Provider: 04/12/19 01:20 History Source: Patient Exam Limitations: No Limitations - History of Present Illness Initial Comments: 04/12/19 01:44 The patient is a 58 year old female, with a significant past medical history of chronic back pain, TIA, HTN, HLD, DM, MRSA, and early dementia , who presents to the emergency department with, nausea and vomiting. As per patient, her symptoms onset after eating a turkey sandwich earlier today and endorses approximately 10 episodes of emesis, prompting her arrival to the ED. She denies recent fevers, chills, headache or dizziness. She denies recent dysuria, frequency, urgency or hematuria. She denies recent chest pain or shortness of breath. Allergies: NKDA Past surgical history: Tubal Ligation. Primary Care Physician: Dr. Bernard Dias Past History - Past Medical History Allergies/Adverse Reactions: Allergies Allergy/AdvReac Type Severity Reaction Status Date / Time No Known Allergies Allergy Verified 04/12/19 01:33 Home Medications: Ambulatory Orders Insulin Glulisine [Apidra Solostar] 5 unit SQ BID 06/04/14 Atorvastatin Ca [Lipitor] 40 mg PO HS 05/14/18 Amlodipine Besylate [Norvasc -] 10 mg PO DAILY 05/18/18 Gabapentin 300 mg PO DAILY 05/18/18 Glipizide [Glipizide ER] 2.5 mg PO BID 05/18/18 Metformin HCl [Glucophage] 1,000 mg PO BID 05/18/18 Aspirin [ASA -] 1 tab PO DAILY 07/19/18 Insulin Regular, Human [Humulin R U-500 Kwikpen] 500 unit SQ TID 04/12/19 Ranitidine HCl [Zantac] 150 mg PO BID 04/12/19 Tizanidine HCl 2 mg PO BID 04/12/19 Cardiac Disorders: Yes COPD: No Diabetes: Yes (NIDDM) HTN: Yes Hypercholesterolemia: Yes Psychiatric Problems: Yes (DEPRESSIONj, dementia) - Surgical History Abdominal Surgery: Yes (TUBAL LIGATION) Orthopedic Surgery: Yes (left knee + a finger) - Immunization History Immunization Up to Date: No - Suicide/Smoking/Psychosocial Hx Smoking Status: No Smoking History: Never smoked Have you smoked in the past 12 months: No Number of Cigarettes Smoked Daily: 0 Information on smoking cessation initiated: No Hx Alcohol Use: No Drug/Substance Use Hx: No Substance Use Type: None Hx Substance Use Treatment: No Review of Systems - Review of Systems Able to Perform ROS?: Yes Comments:: 04/12/19 01:44 GENERAL/CONSTITUTIONAL: No fever or chills. No weakness. HEAD, EYES, EARS, NOSE AND THROAT: No change in vision. No ear pain or discharge. No sore throat. CARDIOVASCULAR: No chest pain or shortness of breath. RESPIRATORY: No cough, wheezing, or hemoptysis. GASTROINTESTINAL: +Nausea. +Vomiting. GENITOURINARY: No dysuria, frequency, or change in urination. MUSCULOSKELETAL: No joint or muscle swelling or pain. No neck or back pain. SKIN: No rash NEUROLOGIC: No headache, vertigo, loss of consciousness, or change in strength/ sensation. ENDOCRINE: No increased thirst. No abnormal weight change. HEMATOLOGIC/LYMPHATIC: No anemia, easy bleeding, or history of blood clots. ALLERGIC/IMMUNOLOGIC: No hives or skin allergy. *Physical Exam - Vital Signs Last Vital Signs Temp Pulse Resp BP Pulse Ox 97.4 F L 96 H 20 96/69 100 04/12/19 01:33 04/12/19 01:33 04/12/19 01:33 04/12/19 01:33 04/12/19 01:33 - Physical Exam Comments: 04/12/19 01:45 GENERAL: +Pale. Awake, alert, and fully oriented, in no acute distress HEAD: No signs of trauma EYES: PERRLA, EOMI, sclera anicteric, conjunctiva clear ENT: Auricles normal inspection, hearing grossly normal, nares patent, oropharynx clear without exudates. Moist mucosa NECK: Normal ROM, supple, no lymphadenopathy, JVD, or masses LUNGS: Breath sounds equal, clear to auscultation bilaterally. No wheezes, and no crackles HEART: Regular rate and rhythm, normal S1 and S2, no murmurs, rubs or gallops ABDOMEN: +Minimal diffuse tenderness. Soft, normoactive bowel sounds. No guarding, no rebound. No masses EXTREMITIES: Normal range of motion, no edema. No clubbing or cyanosis. No cords, erythema, or tenderness NEUROLOGICAL: Cranial nerves II through XII grossly intact. Normal speech SKIN: Warm, Dry, normal turgor, no rashes or lesions noted. ED Treatment Course - LABORATORY CBC & Chemistry Diagram: 04/12/19 01:30 04/12/19 01:30 - ADDITIONAL ORDERS Additional order review: Laboratory Results 04/12/19 04/12/19 01:30 01:30 PT with INR 10.20 INR 0.87 Acetone, Qual Negative L Medical Decision Making - Medical Decision Making 04/12/19 02:03 Acetone negative; INR normal 04/12/19 19:30 Pt felt vastly improved after treatment in the ER and she is ready to go home with her daughter. *DC/Admit/Observation/Transfer Diagnosis at time of Disposition: Gastroenteritis - Discharge Dispostion Disposition: HOME Condition at time of disposition: Stable Decision to Admit order: No - Referrals - Patient Instructions Printed Discharge Instructions: DI for Nausea -- Adult, DI for Vomiting -- Adult - Post Discharge Activity
[2019-04-12 02:26] LABS: ALBUMIN 3.8 g/dl (3.4-5.0); ALK PHOS 106 U/L (45-117); ANION GAP 9 MMOL/L (8-16); BILIRUBIN,TOTAL 0.5 mg/dL (0.2-1); BLOOD UREA NITROGEN 23.7 mg/dL (7-18); CALCIUM 9.1 mg/dL (8.5-10.1); CHLORIDE 98 mmol/L (98-107); CO2 30 mmol/L (21-32); CREATININE 0.7 mg/dL (0.55-1.3); LIPASE 323 U/L (73-393); POTASSIUM 4.3 mmol/L (3.5-5.1); SGOT/AST 20 U/L (15-37); SGPT/ALT 35 U/L (13-61); SODIUM 136 mmol/L (136-145); TOT PROT 7.2 g/dl (6.4-8.2)
[2019-04-12 02:28] LABS: GLUCOSE,RANDOM 383 mg/dL (74-106)
[2019-04-12 02:30] LABS: BASO % 0.4 % (0-2.0); EOS % 0.3 % (0-4.5); HEMATOCRIT 41.3 % (32.4-45.2); HEMOGLOBIN 13.8 GM/dL (10.7-15.3); LYMPH % 5.2 % (8-40); MCH 28.7 pg (25.7-33.7); MCHC 33.5 g/dl (32.0-36.0); MEAN CELL VOLUME 85.8 fl (80-96); MEAN PLT VOLUME 9.9 fl (7.5-11.1); NEUT % 89.1 % (42.8-82.8); PLATELET COUNT 315 K/MM3 (134-434); RBC 4.81 M/mm3 (3.60-5.2); WHITE BLOOD COUNT 9.8 K/mm3 (4.0-10.0)
[2019-04-12] MEDS ORDERED: INSULIN REGULAR HUMAN 100 UNITS/ML *VIAL SQ ONE (02:42)
[2019-04-12] MEDS ORDERED: INSULIN REGULAR HUMAN 100 UNITS/ML *VIAL ONE (03:40)
[2019-04-12 05:44] VITALS: PULSE 92
[2019-04-12 05:56] VITALS: BP 115/63; TEMP 97.9
--- NOTE | 2019-04-13 17:07 | EKG ---
Test Reason : Blood Pressure : / mmHG Vent. Rate : 095 BPM Atrial Rate : 095 BPM P-R Int : 146 ms QRS Dur : 078 ms QT Int : 360 ms P-R-T Axes : 126 175 165 degrees QTc Int : 452 ms SUSPECT ARM LEAD REVERSAL, INTERPRETATION ASSUMES NO REVERSAL UNUSUAL P AXIS, POSSIBLE ECTOPIC ATRIAL RHYTHM RIGHT AXIS DEVIATION NONSPECIFIC ST AND T WAVE ABNORMALITY ABNORMAL ECG WHEN COMPARED WITH ECG OF 01-MAR-2019 12:23, ECTOPIC ATRIAL RHYTHM HAS REPLACED SINUS RHYTHM QUESTIONABLE CHANGE IN QRS AXIS NONSPECIFIC T WAVE ABNORMALITY, IMPROVED IN INFERIOR LEADS INVERTED T WAVES HAVE REPLACED NONSPECIFIC T WAVE ABNORMALITY IN LATERAL LEADS Confirmed by MD JESSICA, WARREN ([id number]) on 04/13/2019 5:07:12 PM Referred By: Confirmed By:WARREN LOPEZ MD
== END 2019-04-12 04:20 | disposition home or self-care (01) ==
LOC: JER 00:52
PROC: 3E013VG Introduction of Insulin into Subcutaneous Tissue, Percutaneous Approach (ICD-10-PCS; principal; 2019-04-12)
PROC: 3E033GC Introduction of Other Therapeutic Substance into Peripheral Vein, Percutaneous Approach (ICD-10-PCS; 2019-04-12)
DX: K52.9 Noninfective gastroenteritis and colitis, unspecified (principal); I10 Essential (primary) hypertension; E78.5 Hyperlipidemia, unspecified; E11.9 Type 2 diabetes mellitus without complications; F03.90 Unspecified dementia, unspecified severity, without behavioral disturbance, psychotic disturbance, mood disturbance, and anxiety; Z79.4 Long term (current) use of insulin
CPT/HCPCS: 36415; 80053; 82009; 82550; 83690; 84484; 85025; 85610; 93005; 93010; 96372; 96374; 99283-25

== ENCOUNTER 2019-05-28 10:38 | Emergency (ER) | payer OTHER ==
[2019-05-28 10:57] VITALS: BP 123/64; PULSE 77; TEMP 98.4; BMI 31.2
--- NOTE | 2019-05-28 11:25 | PDOC ---
History of Present Illness - General Chief Complaint: Eye Problem Stated Complaint: SWOLLEN LT EYE / PAIN / X4 DAYS Time Seen by Provider: 05/28/19 11:16 - History of Present Illness Initial Comments: 05/28/19 11:21 59-year-old female with a past medical history significant for diabetes hypertension presents for evaluation of 4 days of bilateral eye irritation without systemic symptoms. Past History - Past Medical History Allergies/Adverse Reactions: Allergies Allergy/AdvReac Type Severity Reaction Status Date / Time No Known Allergies Allergy Verified 04/12/19 01:33 Home Medications: Ambulatory Orders Insulin Glulisine [Apidra Solostar] 5 unit SQ BID 06/04/14 Atorvastatin Ca [Lipitor] 40 mg PO HS 05/14/18 Amlodipine Besylate [Norvasc -] 10 mg PO DAILY 05/18/18 Gabapentin 300 mg PO DAILY 05/18/18 Glipizide [Glipizide ER] 2.5 mg PO BID 05/18/18 Metformin HCl [Glucophage] 1,000 mg PO BID 05/18/18 Aspirin [ASA -] 1 tab PO DAILY 07/19/18 Insulin Regular, Human [Humulin R U-500 Kwikpen] 500 unit SQ TID 04/12/19 Ranitidine HCl [Zantac] 150 mg PO BID 04/12/19 Tizanidine HCl 2 mg PO BID 04/12/19 Olopatadine HCl [Pataday] 1 drop OU DAILY #1 bottle 05/28/19 Cardiac Disorders: Yes COPD: No Diabetes: Yes (NIDDM) HTN: Yes Hypercholesterolemia: Yes Psychiatric Problems: Yes (DEPRESSIONj, dementia) - Surgical History Abdominal Surgery: Yes (TUBAL LIGATION) Orthopedic Surgery: Yes (left knee + a finger) - Immunization History Immunization Up to Date: No - Suicide/Smoking/Psychosocial Hx Smoking Status: No Smoking History: Never smoked Have you smoked in the past 12 months: No Number of Cigarettes Smoked Daily: 0 Information on smoking cessation initiated: No Hx Alcohol Use: No Drug/Substance Use Hx: No Substance Use Type: None Hx Substance Use Treatment: No Review of Systems - Review of Systems Constitutional: No: Fever HEENTM: Yes: Tearing. No: Eye Pain, Blurred Vision, Recent change in vision *Physical Exam - Vital Signs Last Vital Signs Temp Pulse Resp BP Pulse Ox 98.4 F 77 16 123/64 99 07/31/19 10:54 05/28/19 10:54 05/28/19 10:54 05/28/19 10:54 05/28/19 10:54 - Physical Exam Comments: 05/28/19 11:21 HEAD: NC/AT EYES: Conjuntiva mildly injected clear tears clear tears MS: Full ROM in all joints without edema NEUROLOGIC: No gross sensory or motor deficits, NVID SKIN: Normal color and temperature no lesions or rashes Medical Decision Making - Medical Decision Making 05/28/19 11:22 I'll treat with antihistamine eyedrops have patient follow-up with ophthalmology. 05/28/19 11:22 tobramycin ordered in error we'll cancel and put in a prescription for Pataday. *DC/Admit/Observation/Transfer Diagnosis at time of Disposition: Allergic conjunctivitis - Discharge Dispostion Disposition: HOME Condition at time of disposition: Stable Decision to Admit order: No - Prescriptions Prescriptions: Tobramycin 0.3% Ophth Soln [Tobrex Ophthalmic Solution -] 1 drop OU Q4HWA #1 bottle - Referrals Referrals: Anthony Tucker [Primary Care Provider] - Sang Seth MD [Staff Physician] - - Patient Instructions Printed Discharge Instructions: Conjunctivitis Additional Instructions: Please use the antihistamine eyedrops as directed and follow-up with ophthalmology in 1-2 days without fail for further evaluation and treatment options. Return to the emergency room for worsening symptoms. - Post Discharge Activity
== END 2019-05-28 11:31 | disposition home or self-care (01) ==
LOC: JERFT 10:38
DX: I10 Essential (primary) hypertension (principal); E78.00 Pure hypercholesterolemia, unspecified; F32.9 Major depressive disorder, single episode, unspecified; Z79.4 Long term (current) use of insulin
CPT/HCPCS: 99281-25

== ENCOUNTER 2019-06-18 10:56 | Emergency (ER) | payer OTHER ==
[2019-06-18 11:04] VITALS: BP 132/63; PULSE 76; TEMP 98.2; BMI 30.2
--- NOTE | 2019-06-18 12:22 | PDOC ---
History of Present Illness - General Chief Complaint: Pain Stated Complaint: PAIN IN LT. FOOT Time Seen by Provider: 06/18/19 11:44 History Source: Patient - History of Present Illness Occurred: reports: last week Severity: Yes: moderate Lower Extremity Pain Location: left: foot Past History - Past Medical History Allergies/Adverse Reactions: Allergies Allergy/AdvReac Type Severity Reaction Status Date / Time No Known Allergies Allergy Verified 06/18/19 11:05 Home Medications: Ambulatory Orders Insulin Glulisine [Apidra Solostar] 5 unit SQ BID 06/04/14 Atorvastatin Ca [Lipitor] 40 mg PO HS 05/14/18 Amlodipine Besylate [Norvasc -] 10 mg PO DAILY 05/18/18 Gabapentin 300 mg PO DAILY 05/18/18 Glipizide [Glipizide ER] 2.5 mg PO BID 05/18/18 Metformin HCl [Glucophage] 1,000 mg PO BID 05/18/18 Aspirin [ASA -] 1 tab PO DAILY 07/19/18 Insulin Regular, Human [Humulin R U-500 Kwikpen] 500 unit SQ TID 04/12/19 Ranitidine HCl [Zantac] 150 mg PO BID 04/12/19 Tizanidine HCl 2 mg PO BID 04/12/19 Olopatadine HCl [Pataday] 1 drop OU DAILY #1 bottle 05/28/19 Ciprofloxacin [Cipro -] 500 mg PO Q12H #14 tablet 06/18/19 Clindamycin [Cleocin -] 150 mg PO TID #21 capsule 06/18/19 Lactobacillus Rhamnosus GG [Culturelle] 1 each PO DAILY #7 capsule 06/18/19 Cardiac Disorders: Yes COPD: No Diabetes: Yes (NIDDM) HTN: Yes Hypercholesterolemia: Yes Psychiatric Problems: Yes (DEPRESSIONj, dementia) - Surgical History Abdominal Surgery: Yes (TUBAL LIGATION) Orthopedic Surgery: Yes (left knee + a finger) - Immunization History Immunization Up to Date: No - Suicide/Smoking/Psychosocial Hx Smoking Status: No Smoking History: Never smoked Have you smoked in the past 12 months: No Number of Cigarettes Smoked Daily: 0 Information on smoking cessation initiated: No Hx Alcohol Use: No Drug/Substance Use Hx: No Substance Use Type: None Hx Substance Use Treatment: No Review of Systems - Review of Systems Constitutional: No: Fever *Physical Exam - Vital Signs Last Vital Signs Temp Pulse Resp BP Pulse Ox 98.2 F 76 19 132/63 100 06/18/19 11:03 06/18/19 11:03 06/18/19 11:03 06/18/19 11:03 06/18/19 11:03 - Physical Exam General Appearance: Yes: Appropriately Dressed. No: Apparent Distress HEENT: positive: Normal Voice Neck: positive: Supple Respiratory/Chest: negative: Respiratory Distress Extremity: positive: Other (superficial pustule 4-5mm in size to ball of L foot w/ mms sized black misael fb) Integumentary: positive: Dry, Warm Neurologic: positive: Fully Oriented, Alert, Normal Mood/Affect ED Treatment Course - RADIOLOGY Radiology Studies Ordered: Category Date Time Status FOOT-LEFT [RAD] Stat Radiology 06/18/19 12:15 Ordered Medical Decision Making - Medical Decision Making 06/18/19 12:54 59 yo F, HTN, IDDM, here w/ pain to plantar aspect of L foot x 1 week, worse w/ weight bearing. Denies trauma see exam Plantar FB w/ soft tissue infection to L foot +small black fb removed w/ scant purulent drainage, no e/o deeper infxn at this time -tetanus UTD -XR w/no obvious retained FB -dc w/ abx covering pseudomonas/staph/MRSA -wound check in 2 days *DC/Admit/Observation/Transfer Diagnosis at time of Disposition: Abscess of foot Foreign body in foot Qualifiers: Encounter type: initial encounter Laterality: left Qualified Code(s): S90.852A - Superficial foreign body, left foot, initial encounter - Discharge Dispostion Disposition: HOME Condition at time of disposition: Improved - Prescriptions Prescriptions: Ciprofloxacin [Cipro -] 500 mg PO Q12H #14 tablet Clindamycin [Cleocin -] 150 mg PO TID #21 capsule Lactobacillus Rhamnosus GG [Culturelle] 1 each PO DAILY #7 capsule - Referrals Referrals: Anthony Tucker [Primary Care Provider] - - Patient Instructions Printed Discharge Instructions: DI for Skin Abscess Additional Instructions: Parece que joan un cuerpo extrao pequeo en willis pie shaina que caus lynda infeccin localizada de tejidos blandos que fue drenada Willis XR no mostr FB adicional [place] antibiticos segn las indicaciones. Regrese al servicio de urgencias en 2 santizo para el control de heridas - Post Discharge Activity
== END 2019-06-18 13:17 | disposition home or self-care (01) ==
LOC: JERFT 10:56
DX: S90.852A Superficial foreign body, left foot, initial encounter (principal); X58.XXXA Exposure to other specified factors, initial encounter; Y93.9 Activity, unspecified; Y92.9 Unspecified place or not applicable; L02.612 Cutaneous abscess of left foot
CPT/HCPCS: 73630-TC-LT; 99281-25

== ENCOUNTER 2019-11-21 10:20 | Emergency (ER) | payer OTHER ==
[2019-11-21 10:27] VITALS: BP 130/51; PULSE 73; TEMP 98.9; BMI 25.4
--- NOTE | 2019-11-21 11:36 | PDOC ---
History of Present Illness - General Chief Complaint: Ear Problem Stated Complaint: LT. EAR PAIN Time Seen by Provider: 11/21/19 10:44 History Source: Patient Exam Limitations: No Limitations Past History - Travel Traveled outside of the country in the last 30 days: No Close contact w/someone who was outside of country & ill: No - Past Medical History Allergies/Adverse Reactions: Allergies Allergy/AdvReac Type Severity Reaction Status Date / Time No Known Allergies Allergy Verified 11/21/19 10:23 Home Medications: Ambulatory Orders Insulin Glulisine [Apidra Solostar] 5 unit SQ BID 06/04/14 Atorvastatin Ca [Lipitor] 40 mg PO HS 05/14/18 Amlodipine Besylate [Norvasc -] 10 mg PO DAILY 05/18/18 Gabapentin 300 mg PO DAILY 05/18/18 Glipizide [Glipizide ER] 2.5 mg PO BID 05/18/18 Metformin HCl [Glucophage] 1,000 mg PO BID 05/18/18 Aspirin [ASA -] 1 tab PO DAILY 07/19/18 Insulin Regular, Human [Humulin R U-500 Kwikpen] 500 unit SQ TID 04/12/19 Ranitidine HCl [Zantac] 150 mg PO BID 04/12/19 Tizanidine HCl 2 mg PO BID 04/12/19 Olopatadine HCl [Pataday] 1 drop OU DAILY #1 bottle 05/28/19 Ciprofloxacin [Cipro -] 500 mg PO Q12H #14 tablet 06/18/19 Clindamycin [Cleocin -] 150 mg PO TID #21 capsule 06/18/19 Lactobacillus Rhamnosus GG [Culturelle] 1 each PO DAILY #7 capsule 06/18/19 Clindamycin [Cleocin -] 150 mg PO TID #21 capsule 11/21/19 Cardiac Disorders: Yes COPD: No Diabetes: Yes (NIDDM) HTN: Yes Hypercholesterolemia: Yes Psychiatric Problems: Yes (DEPRESSIONj, dementia) - Surgical History Abdominal Surgery: Yes (TUBAL LIGATION) Orthopedic Surgery: Yes (left knee + a finger) - Immunization History Immunization Up to Date: No - Psycho Social/Smoking Cessation Hx Smoking Status: No Smoking History: Never smoked Have you smoked in the past 12 months: No Number of Cigarettes Smoked Daily: 0 Hx Alcohol Use: No Drug/Substance Use Hx: No Substance Use Type: None Hx Substance Use Treatment: No Review of Systems - Review of Systems Able to Perform ROS?: Yes Comments:: 11/21/19 17:08 CONSTITUTIONAL: Absent: fever, chills, diaphoresis, generalized weakness, malaise, loss of appetite HEENT: Absent: rhinorrhea, nasal congestion, throat pain, throat swelling, difficulty swallowing, mouth swelling, ear pain, eye pain, visual Changes MUSCULOSKELETAL: Absent: myalgia, arthralgia, joint swelling SKIN: Present: Abscess absent: rash, itching, pallor NEUROLOGIC: Absent: headache, focal weakness or paresthesias, dizziness, unsteady gait, seizure, mental status changes, bladder or bowel incontinence PSYCHIATRIC: Absent: anxiety, depression, suicidal or homicidal ideation, hallucinations. Is the patient limited Bulgarian proficient: No *Physical Exam - Vital Signs Last Vital Signs Temp Pulse Resp BP Pulse Ox 98.9 F 73 18 130/51 L 100 11/21/19 10:24 11/21/19 10:24 11/21/19 10:24 11/21/19 10:24 11/21/19 10:24 - Physical Exam 11/21/19 16:09 GENERAL: The patient is awake, alert, and fully oriented, in no acute distress. HEAD: Normal with no signs of trauma. EYES: Pupils equal, round and reactive to light, extraocular movements intact, sclera anicteric, conjunctiva clear. EXTREMITIES: Normal range of motion, no edema. NEUROLOGICAL: Normal speech, normal gait. PSYCH: Normal mood, normal affect. SKIN: Pimple present to the left face lateral to the eye with underlying induration. No evidence of cellulitis. Warm, Dry, normal turgor, no rashes or lesions noted. Medical Decision Making - Medical Decision Making 11/21/19 18:11 Patient is a 59-year-old female type II diabetic, presents to the ER today for a painful pimple to the left side of her face that is been going on for 3 days. She states that is been getting bigger and bigger and that it is tender to touch. She states she is also having left ear pain due to the pimple. Denies fevers, chills, difficulty swallowing, nausea, vomiting diarrhea. A/P: Pimple, induration early abscess? On exam patient with a pimple to the left side of her face lateral to the left eye. Will not drain at this time. There is some induration underneath. Will treat with antibiotics given patient is a diabetic. Recommend warm water soaks and follow-up with dermatology. Strict return precautions given. I discussed the physical exam findings, ancillary test results and final diagnoses with the patient. I answered all of the patient's questions. The patient was satisfied with the care received and felt comfortable with the discharge plan and treatment plan. The Patient agrees to follow up with the primary care physician/specialist within 24-72 hours. Return precautions were given. Discharge - Discharge Information Problems reviewed: Yes Clinical Impression/Diagnosis: Abscess Condition: Stable Disposition: HOME - Admission No - Additional Discharge Information Prescriptions: Clindamycin [Cleocin -] 150 mg PO TID #21 capsule - Follow up/Referral Referrals: Anthony Tucker [Primary Care Provider] - - Patient Discharge Instructions Patient Printed Discharge Instructions: DI for Skin Abscess Additional Instructions: You have cellulitis. This is a skin infection. Please take the clindamycin 3 times a day for 1 week. You may use warm water soaks to the area. Please do this approximately 4-5 times a day. Please avoid shaving the skin around the area of redness. You may take Tylenol or Motrin as needed for pain. Please follow up with your primary care doctor in 1 week. Return to the emergency department if you have worsening redness, fevers, increasing pain, or have any changes in your symptoms. Tienes celulitis. Esta es lynda infeccin de la piel.[place] la clindamicina 3 veces al da ellen 1 semana.Puede usar agua tibia en el tash. Jess esto aproximadamente 4-5 veces al da.Evite afeitarse la piel alrededor del tash de enrojecimiento.Puede kwaku Tylenol o Motrin segn sea necesario para el dolor.Jess un seguimiento con willis mdico de atencin primaria en 1 semana.Regrese al departamento de emergencias si tiene empeoramiento del enrojecimiento, fiebre, aumento del dolor o si tiene algn cambio en gema sntomas. - Post Discharge Activity Work/Back to School Note: Back to Work
== END 2019-11-21 11:45 | disposition home or self-care (01) ==
LOC: JERFT 10:20
DX: H66.42 Suppurative otitis media, unspecified, left ear (principal); E11.9 Type 2 diabetes mellitus without complications; Z79.4 Long term (current) use of insulin; I10 Essential (primary) hypertension; F32.9 Major depressive disorder, single episode, unspecified; I51.9 Heart disease, unspecified
CPT/HCPCS: 99281-25

== ENCOUNTER 2021-08-04 10:25 | Emergency (ER) | payer OTHER ==
[2021-08-04 10:48] VITALS: BP 137/93; PULSE 72; TEMP 98.2; BMI 31.3
[2021-08-04] MEDS ORDERED: ACETAMINOPHEN 1000 MG/100 ML VIAL (NON FORMULARY) IVPB ONE (11:39)
[2021-08-04] MEDS ORDERED: LIDOCAINE 5% TOPICAL PATCH TP ONE (11:40)
[2021-08-04] MEDS ORDERED: LIDOCAINE 5% TOPICAL PATCH ONE (12:08)
[2021-08-04 12:46] LABS: BASO % 0.3 % (0-2.0); EOS % 1.3 % (0-4.5); HEMATOCRIT 36.6 % (32.4-45.2); HEMOGLOBIN 12.1 GM/dL (10.7-15.3); LYMPH % 18.8 % (8-40); MEAN CELL VOLUME 84.8 fl (80-96); MEAN PLT VOLUME 10.1 fl (7.5-11.1); NEUT % 72.6 % (42.8-82.8); PLATELET COUNT 261 10^3/uL (134-434); RBC 4.32 M/mm3 (3.60-5.2); RDW 14.2 % (11.6-15.6); WHITE BLOOD COUNT 5.3 K/mm3 (4.0-10.0)
[2021-08-04 12:58] LABS: INR 0.87 (0.83-1.09); PROTHROMBIN TIME (PATIENT) 10.7 SEC (9.7-13.0)
[2021-08-04 13:00] LABS: ACTIVATED PTT 27.4 SECONDS (25.2-36.5)
[2021-08-04 13:13] LABS: CHLORIDE 99 mmol/L (98-107); SODIUM 134 mmol/L (136-145)
[2021-08-04 13:19] LABS: ALBUMIN 3.1 g/dl (3.4-5.0); ANION GAP 6 MMOL/L (8-16); BLOOD UREA NITROGEN 22.8 mg/dL (7-18); CALCIUM 8.9 mg/dL (8.5-10.1); CO2 30 mmol/L (21-32)
[2021-08-04 13:23] LABS: CREATININE 0.7 mg/dL (0.55-1.3); SGOT/AST 12 U/L (15-37); SGPT/ALT 27 U/L (13-61)
[2021-08-04 13:25] LABS: ALK PHOS 117 U/L (45-117)
[2021-08-04 13:28] LABS: BILIRUBIN,TOTAL 0.3 mg/dL (0.2-1)
[2021-08-04 13:34] LABS: GLUCOSE,RANDOM 415 mg/dL (74-106)
[2021-08-04] MEDS ORDERED: INSULIN REGULAR HUMAN 100 UNITS/ML *VIAL SQ ONE (13:49)
[2021-08-04 13:59] LABS: ERYTHROCYTE SEDIMENTATION RATE 13 mm/hr (0-30)
[2021-08-04] MEDS ORDERED: LIDOCAINE PATCH REMOVAL MC ONE (22:00)
== END 2021-08-04 15:30 | disposition home or self-care (01) ==
LOC: JER 10:25
PROC: 3E033GC Introduction of Other Therapeutic Substance into Peripheral Vein, Percutaneous Approach (ICD-10-PCS; principal; 2021-08-04)
PROC: 3E023GC Introduction of Other Therapeutic Substance into Muscle, Percutaneous Approach (ICD-10-PCS; principal; 2021-08-04)
DX: L73.9 Follicular disorder, unspecified (principal); Z22.322 Carrier or suspected carrier of Methicillin resistant Staphylococcus aureus
CPT/HCPCS: 36415; 80053; 82962; 85025; 85610; 85651; 85730; 99284-25; J0131

== ENCOUNTER 2022-03-29 09:47 | Emergency (ER) | payer OTHER ==
[2022-03-29 10:02] VITALS: BMI 27.3
[2022-03-29] MEDS ORDERED: SODIUM CHLORIDE 0.9% 1000 ML INFUS.BAG IV ONE ×2 (10:35→12:23)
[2022-03-29 12:47] LABS: BASO % 0.4 % (0-2.0); EOS % 0.9 % (0-4.5); HEMATOCRIT 36.4 % (32.4-45.2); LYMPH % 14.1 % (8-40); MCHC 33.1 g/dl (32.0-36.0); MEAN CELL VOLUME 84.7 fl (80-96); MEAN PLT VOLUME 10.5 fl (7.5-11.1); MONO % 5.2 % (3.8-10.2); NEUT % 79.4 % (42.8-82.8); PLATELET COUNT 223 10^3/uL (134-434); RDW 13.8 % (11.6-15.6); WHITE BLOOD COUNT 5.5 K/mm3 (4.0-10.0)
[2022-03-29 12:53] LABS: VENOUS O2 SATURATION 50.4 % (70-80); VENOUS PCO2 54.2 mmHg (38-52); VENOUS PH 7.301 (7.310-7.410)
[2022-03-29 13:34] LABS: CHLORIDE 98 mmol/L (98-107); SODIUM 132 mmol/L (136-145)
[2022-03-29 13:35] LABS: ALBUMIN 3.3 g/dl (3.4-5.0); CALCIUM 8.8 mg/dL (8.5-10.1)
[2022-03-29 13:36] LABS: ANION GAP 5 MMOL/L (8-16); BLOOD UREA NITROGEN 24.6 mg/dL (7-18); CO2 30 mmol/L (21-32)
[2022-03-29 13:39] LABS: CREATININE 0.7 mg/dL (0.55-1.3); SGOT/AST 16 U/L (15-37); SGPT/ALT 35 U/L (13-61)
[2022-03-29 13:41] LABS: BILIRUBIN,TOTAL 0.3 mg/dL (0.2-1); TOT PROT 6.7 g/dl (6.4-8.2)
[2022-03-29 13:42] LABS: ALK PHOS 112 U/L (45-117)
[2022-03-29] MEDS ORDERED: INSULIN REGULAR HUMAN 100 UNITS/ML *VIAL IVPUSH ONE ×2 (15:33→16:23)
[2022-03-29 17:34] LABS: PH,URINE 6.5 (5.0-8.0); URINE APPEARANCE CLEAR; URINE BILIRUBIN NEGATIVE (NEGATIVE); URINE COLOR YELLOW; URINE GLUCOSE (UA) 2+ (NEGATIVE); URINE KETONE NEGATIVE (NEGATIVE); URINE LEUK ESTERASE NEGATIVE (NEGATIVE); URINE NITRITE NEGATIVE (NEGATIVE); URINE PROTEIN NEGATIVE (NEGATIVE); URINE UROBILINOGEN 0.2 mg/dL (0.2-1.0)
[2022-03-29 17:56] LABS: GLUCOSE,RANDOM 539 mg/dL (74-106)
[2022-03-29 18:33] VITALS: BP 142/60; PULSE 74; TEMP 98
== END 2022-03-29 18:33 | disposition home or self-care (01) ==
LOC: JER 09:47
PROC: 3E033GC Introduction of Other Therapeutic Substance into Peripheral Vein, Percutaneous Approach (ICD-10-PCS; principal; 2022-03-29)
DX: E11.65 Type 2 diabetes mellitus with hyperglycemia (principal)
CPT/HCPCS: 36415; 80053; 81003; 82010; 82803; 82962; 84484; 85025; 93005; 93010; 99284-25; C9803-CS; U0003; U0005

== ENCOUNTER 2023-08-30 10:24 | Emergency (ER) | payer OTHER ==
[2023-08-30 10:39] VITALS: BP 132/66; PULSE 71; RESP 18; TEMP 97.7; BMI 37.0
[2023-08-30] MEDS ORDERED: AMOX TR/POT CLAV 875MG/125MG TABLETS (FP) PO ONE (12:04)
[2023-08-30] MEDS ORDERED: AMOX TR/POT CLAV 875MG/125MG TABLETS (FP) ONE (12:08)
== END 2023-08-30 12:39 | disposition home or self-care (01) ==
LOC: JER 10:24
DX: H92.02 Otalgia, left ear (principal); R05.9 Cough, unspecified; H93.8X2 Other specified disorders of left ear; H60.92 Unspecified otitis externa, left ear; Z20.822 Contact with and (suspected) exposure to COVID-19
CPT/HCPCS: 0241U-QW; 71046-TC-FY; 99284-25